=== PATIENT | female | born 1935 | race Caucasian/White ===

== ENCOUNTER 2017-05-21 13:31 | Inpatient (IN) | payer MEDICARE, MEDICAID ==
[2017-05-21] MEDS ORDERED: HYDROMORPHONE HCL INJ/PF 2 MG/ML AMPULE IM ONE (13:50)
--- NOTE | 2017-05-21 14:11 | RADIOLOGY REPORT (SQ) ---
EXAM DESCRIPTION: HIP LEFT AP/LATERAL COMPLETED DATE/TIME: 05/21/2017 1:52 pm REASON FOR STUDY: bed 2 wc s/p fall- l hip tenderness COMPARISON: None. NUMBER OF VIEWS: Two views. TECHNIQUE: AP pelvis and additional frog-leg view of the left hip. LIMITATIONS: None. FINDINGS: MINERALIZATION: Osteoporotic LEFT HIP: Acute intertrochanteric proximal femoral comminuted fracture with varus angulation. Medial and proximal displacement of a lesser trochanter fragment. RIGHT HIP: No fracture or dislocation. No worrisome bone lesions. PUBIS AND ISCHIUM: No fracture. PELVIS: No fracture. SACRUM: No fracture or dislocation. No worrisome bone lesions. LOWER LUMBAR SPINE: Disc space narrowing and facet arthropathy at L4-5 and L5-S1 SOFT TISSUES: No findings. OTHER: No other significant finding. IMPRESSION: Acute left intertrochanteric comminuted proximal femoral fracture with varus angulation. TECHNICAL DOCUMENTATION: JOB ID: [id number] [employer]- All Rights Reserved
--- NOTE | 2017-05-21 14:24 | ER Document Report ---
ED General - General Chief Complaint: Hip Injury Stated Complaint: FALL Time Seen by Provider: 05/21/17 13:50 TRAVEL OUTSIDE OF THE [place] IN LAST 30 DAYS: No - HPI Patient complains to provider of: Left hip pain Notes: Patient presents with 10/10 left hip pain. Pain started after fall at rehab facility. Just prior to arrival. Patient has history of left-sided deficit from stroke but is still able to ambulate and transfer. Patient was attempting to transfer lost her balance falling onto her left hip. No other traumatic injuries. Patient has no complaints at this time outside of left hip pain. - Related Data Allergies/Adverse Reactions: No Known Allergies Allergy (Unverified 09/08/10 10:02) Past Medical History - Social History Smoking Status: Never Smoker Chew tobacco use (# tins/day): No Frequency of alcohol use: None Drug Abuse: None Family History: Reviewed & Not Pertinent Patient has suicidal ideation: No Patient has homicidal ideation: No - Past Medical History Cardiac Medical History: Reports: Hx Hypercholesterolemia, Hx Hypertension Renal/ Medical History: Denies: Hx Peritoneal Dialysis Review of Systems - Review of Systems Constitutional: No symptoms reported EENT: No symptoms reported Cardiovascular: No symptoms reported Respiratory: No symptoms reported Gastrointestinal: No symptoms reported Genitourinary: No symptoms reported Female Genitourinary: No symptoms reported Musculoskeletal: Joint pain Skin: No symptoms reported Hematologic/Lymphatic: No symptoms reported Neurological/Psychological: No symptoms reported Physical Exam - Vital signs Interpretation: Normal - General General appearance: Appears well, Alert - HEENT Head: Normocephalic, Atraumatic Eyes: Normal Pupils: PERRL - Respiratory Respiratory status: No respiratory distress Chest status: Nontender Breath sounds: Normal Chest palpation: Normal - Cardiovascular Rhythm: Regular Heart sounds: Normal auscultation Murmur: No - Abdominal Inspection: Normal Distension: No distension Bowel sounds: Normal Tenderness: Nontender Organomegaly: No organomegaly - Back Back: Normal, Nontender - Extremities General lower extremity: No: Shelbi's sign Arm: Other - Left arm contracted locked in flexion Notes: Left leg shortened and externally rotated - Neurological Neuro grossly intact: Yes Cognition: Normal Orientation: AAOx4 Zoë Coma Scale Eye Opening: Spontaneous Rudyard Coma Scale Verbal: Oriented Zoë Coma Scale Motor: Obeys Commands Zoë Coma Scale Total: 15 Speech: Normal Motor strength normal: LUE, RUE, LLE, RLE Sensory: Normal - Psychological Associated symptoms: Normal affect, Normal mood - Skin Skin Temperature: Warm Skin Moisture: Dry Skin Color: Normal Course - Re-evaluation Re-evalutation: 05/21/17 14:33 Unfortunate female presents from [facility]. Patient has broken her left hip. Contacted orthopedics and will be repairing patients of tomorrow morning. Patient will be admitted to the hospital - EKG Interpretation by Me Additional EKG results interpreted by me: 05/21/17 14:32 Normal sinus rhythm, normal OR, no ST elevations or depressions, no pathologic T -wave inversion Discharge - Discharge Clinical Impression: Hip fracture Qualifiers: Encounter type: initial encounter Fracture type: closed Laterality: left Qualified Code(s): S72.002A - Fracture of unspecified part of neck of left femur , initial encounter for closed fracture Condition: Stable Disposition: ADMITTED INPATIENT Admitting Provider: [facility] Admitted: Medical Floor Referrals: MARISSA MILLER MD [Primary Care Provider] - Follow up as needed
--- NOTE | 2017-05-21 14:54 | RADIOLOGY REPORT (SQ) ---
EXAM DESCRIPTION: CHEST SINGLE VIEW COMPLETED DATE/TIME: 05/21/2017 2:37 pm REASON FOR STUDY: pre-op COMPARISON: Two-view chest 06/21/2007 EXAM PARAMETERS: NUMBER OF VIEWS: One view. TECHNIQUE: Single frontal radiographic view of the chest acquired. RADIATION DOSE: NA LIMITATIONS: None. FINDINGS: LUNGS AND PLEURA: No opacities, masses or pneumothorax. No pleural effusion. MEDIASTINUM AND HILAR STRUCTURES: No masses. Contour normal. HEART AND VASCULAR STRUCTURES: Heart normal in size. Normal vasculature. BONES: Osteoporotic HARDWARE: None in the chest. OTHER: No other significant finding. IMPRESSION: NO ACUTE RADIOGRAPHIC FINDING IN THE CHEST. TECHNICAL DOCUMENTATION: JOB ID: [id number] [employer]- All Rights Reserved
[2017-05-21 15:03] LABS: ABSOLUTE EOSINOPHILS # (AUTO) 0.2 10^3/uL (0.0-0.6); ABSOLUTE LYMPHOCYTES (AUTO) 1.6 10^3/uL (0.5-4.7); ABSOLUTE MONOCYTES (AUTO) 0.9 10^3/uL (0.1-1.4); ABSOLUTE NEUT (AUTO) 6.5 10^3/uL (1.7-8.2); BASOPHILS % (AUTO) 0.3 % (0-2); EOSINOPHILS % (AUTO) 1.8 % (0-6); HEMATOCRIT 35.2 % (36.0-47.0); LYMPHOCYTES % (AUTO) 17.1 % (13-45); MEAN CORPUSCULAR HGB CONC 34.1 g/dL (32.0-36.0); MEAN CORPUSCULAR VOLUME 105 fl (80-97); MONOCYTES % (AUTO) 9.5 % (3-13); PLATELET COUNT 204 10^3/uL (150-450); RED BLOOD COUNT 3.34 10^6/uL (3.72-5.28); RED CELL DISTRIBUTION WIDTH 11.9 % (11.5-14.0); SEGMENTED NEUTROPHILS % (AUTO) 71.3 % (42-78); TOTAL CELLS COUNTED % (AUTO) 100 %; WHITE BLOOD COUNT 9.1 10^3/uL (4.0-10.5)
[2017-05-21 15:08] LABS: INTERNATIONAL RATION (INR) 0.89; PROTHROMBIN TIME 12.7 SEC (11.4-15.4)
[2017-05-21 15:22] LABS: ANION GAP 6 (5-19); BLOOD UREA NITROGEN 35 mg/dL (7-20); CALCIUM 9.4 mg/dL (8.4-10.2); CARBON DIOXIDE 27 mmol/L (22-30); CHLORIDE 102 mmol/L (98-107); GLUCOSE 105 mg/dL (75-110); POTASSIUM 4.6 mmol/L (3.6-5.0); SODIUM 134.7 mmol/L (137-145)
[2017-05-21] MEDS ORDERED: 1/2 NORMAL SALINE 1,000 ML IV PRN (15:52)
[2017-05-21] MEDS ORDERED: INFLUENZA ADLT QUAD (36MOS+) 2017-18 VAC 0.5 ML SYR IM PRN (15:55)
[2017-05-21] MEDS ORDERED: DEXTROSE 40% GEL 15 GM TUBE PO PRN ×2 (16:12)
[2017-05-21] MEDS ORDERED: DEXTROSE 50%-WATER 25 GM/50 ML DISP.SYRIN IV PRN ×2 (16:12)
[2017-05-21] MEDS ORDERED: GLUCAGON,HUMAN RECOMB 1 MG INJ SUBCUT PRN (16:12)
[2017-05-21] MEDS: HYDROMORPHONE HCL INJ/PF 2 MG/ML AMPULE IV PRN (20:11)
[2017-05-21] MEDS ORDERED: (PENDING PHARMACY ID) (Ondansetron Hcl [Zofran 4 Mg Tablet] 4 MG) PO PRN (21:08)
[2017-05-21] MEDS ORDERED: (PENDING PHARMACY ID) (Acetaminophen [Tylenol Extra Strength] 1,000 MG) PO PRN (21:08)
[2017-05-21] MEDS ORDERED: (PENDING PHARMACY ID) (Calcium Carbonate/Vitamin D3 [Caltrate 600 Plus D3 Tablet] 1 TAB) PO SCH (21:15)
[2017-05-21] MEDS ORDERED: (PENDING PHARMACY ID) (Omega-3/Dha/Epa/Fish Oil [Fish Oil 1,000 Mg Softgel] 1 EACH) PO SCH (21:15)
[2017-05-21] MEDS ORDERED: (PENDING PHARMACY ID) (Multivit-Min/Iron/Folic/Lutein [Centrum Silver Women Tablet] 1 EACH PO SCH (21:15)
--- NOTE | 2017-05-21 21:24 | PDOC H&P ---
History of Present Illness Admission Date/PCP: 05/21/17 14:49 MARISSA MILLER MD History of Present Illness: SAUD DEWEY is a 82 year old female,She is a resident of halfway home at [facility] rehabilitation center she lost balance earlier today fell sustaining left intertrochanteric comminuted proximal femoral fracture. There was no antecedent chest pain, shortness of breath, loss of consciousness. She was referred to the emergency room, x-ray was done, this was confirmed. She has a history of CVA with residual left-sided weakness, she had a history of chronic kidney disease stage III, there is no history of diabetes mellitus, there is no history of coronary artery disease, there is no history of CHF based on the revised cardiac risk index score she has one-point based on the CVA history, the chronic kidney disease, serum creatinine is less than 2 this suggest that the risk of cardiovascular event in the ar-operative period is low she can proceed to surgery Past Medical History Cardiac Medical History: Reports: Hyperlipidema, Hypertension Neurological Medical History: Reports: Ischemic CVA Renal/ Medical History: Reports: Other - Chronic kidney disease stage III Musculoskeltal Medical History: Reports: Arthritis Psychiatric Medical History: Reports: Depression Hematology: Reports: Anemia Social History Smoking Status: Never Smoker Frequency of Alcohol Use: None Hx Recreational Drug Use: No Drugs: None Hx Prescription Drug Abuse: No - Advance Directive Resuscitation Status: Full Code Family History Family History: Reviewed & Not Pertinent Parental Family History Reviewed: Yes Children Family History Reviewed: Yes Sibling(s) Family History Reviewed.: Yes Medication/Allergy Home Medications: Acetaminophen [Tylenol Extra Strength] 1,000 mg PO Q8HP PRN 05/21/17 Amlodipine Besylate [Norvasc 10 mg Tablet] 10 mg PO DAILY 05/21/17 Aspirin/Dipyridamole [Aggrenox 25 mg-200 mg Capsule] 1 each PO BID 05/21/17 Atorvastatin Calcium [Lipitor 40 mg Tablet] 40 mg PO QHS 05/21/17 Bimatoprost [Lumigan 0.01% Oph Soln 2.5 ml/Bottle] 1 drop OU QHS 05/21/17 Calcium Carbonate/Vitamin D3 [Caltrate 600 + D Tablet] 1 tab PO BID 05/21/17 Carboxymethylcellulose Sodium [Refresh Tears] 2 drop OU Q12 05/21/17 Chlorpheniramine Maleate [Chlor-Trimeton 4 Mg Tablet] 4 mg PO Q6 05/21/17 Cholecalciferol (Vitamin D3) [Vitamin D3 1000 Unit Tablet] 2,000 unit PO DAILY 05/21/17 Ezetimibe [Zetia 10 mg Tablet] 10 mg PO DAILY 05/21/17 Ferrous Sulfate [Feosol 325 mg Tablet] 325 mg PO DAILY 05/21/17 Fluoxetine HCl [Prozac] 40 mg PO DAILY 05/21/17 Folic Acid [Folvite 1 mg Tablet] 1 mg PO DAILY 05/21/17 Furosemide [Lasix 40 mg Tablet] 40 mg PO QAM 05/21/17 Hydrocodone/Acetaminophen [[place] 5-325 mg Tablet] 1 tab PO Q6HP PRN 05/21/17 Lisinopril [Prinivil 40 mg Tablet] 40 mg PO DAILY 05/21/17 Loratadine [Claritin 10 mg Tablet] 10 mg PO DAILY 05/21/17 Lorazepam [Ativan 0.5 mg Tablet] 0.25 mg PO Q4HP PRN 05/21/17 Metoprolol Tartrate [Lopressor 25 mg Tablet] 25 mg PO Q12 05/21/17 Mometasone Furoate [Nasonex] 2 spray NS DAILY 05/21/17 Montelukast Sodium [Singulair 10 mg Tablet] 10 mg PO QHS 05/21/17 Multivit-Min/Iron/Folic/Lutein [Centrum Silver Women Tablet] 1 each PO DAILY 08/31 [place]-3/Dha/Epa/Fish Oil [Fish Oil 1,000 mg Softgel] 1 each PO TID 05/21/17 Omeprazole 20 mg PO DAILY 05/21/17 Ondansetron HCl [Zofran 4 mg Tablet] 4 mg PO Q8HP PRN 05/21/17 Potassium Chloride [Klor-Con M10] 10 meq PO DAILY 05/21/17 Sennosides/Docusate 8.6-50 mg [Senna Plus Tablet] 1 tab PO BID 05/21/17 Allergies/Adverse Reactions: No Known Allergies Allergy (Unverified 09/08/10 10:02) Review of Systems Constitutional: ABSENT: chills, fever(s), headache(s), weight gain, weight loss Eyes: ABSENT: visual disturbances Ears: ABSENT: hearing changes Cardiovascular: ABSENT: chest pain, dyspnea on exertion, edema, orthropnea, palpitations Respiratory: ABSENT: cough, hemoptysis Gastrointestinal: ABSENT: abdominal pain, constipation, diarrhea, hematemesis, hematochezia, nausea, vomiting Genitourinary: ABSENT: dysuria, hematuria Musculoskeletal: PRESENT: joint swelling Integumentary: ABSENT: rash, wounds Neurological: ABSENT: abnormal gait, abnormal speech, confusion, dizziness, focal weakness, syncope Psychiatric: ABSENT: anxiety, depression, homidical ideation, suicidal ideation Endocrine: ABSENT: cold intolerance, heat intolerance, menstrual abnormalities, polydipsia, polyuria Hematologic/Lymphatic: ABSENT: easy bleeding, easy bruising, lymphadenopathy Physical Exam Vital Signs: Temp Pulse Resp BP Pulse Ox 98.1 F 57 L 17 119/50 L 98 05/21/17 16:51 05/21/17 16:51 05/21/17 16:51 05/21/17 16:51 05/21/17 16:51 Intake & Output 05/20/17 05/21/17 05/22/17 06:59 06:59 06:59 Weight 65.1 kg General appearance: PRESENT: no acute distress, well-developed, well-nourished Head exam: PRESENT: atraumatic, normocephalic Eye exam: PRESENT: conjunctiva pink, EOMI, PERRLA Ear exam: PRESENT: normal external ear exam Mouth exam: PRESENT: moist, tongue midline Neck exam: PRESENT: full ROM Respiratory exam: PRESENT: clear to auscultation bill Cardiovascular exam: PRESENT: RRR, +S1, +S2 Vascular exam: PRESENT: normal capillary refill GI/Abdominal exam: PRESENT: normal bowel sounds, soft Rectal exam: PRESENT: deferred Musculoskeletal exam: PRESENT: deformity - There is deformity of the left lower extremities, tenderness on palpation of the HIP area Neurological exam: PRESENT: alert, motor sensory deficit - Left-sided weakness Psychiatric exam: PRESENT: appropriate affect, normal mood Skin exam: PRESENT: dry, intact, warm Results Impressions: Hip X-Ray 05/21/17 00:00 IMPRESSION: Acute left intertrochanteric comminuted proximal femoral fracture with varus angulation. Chest X-Ray 05/21/17 14:16 IMPRESSION: NO ACUTE RADIOGRAPHIC FINDING IN THE CHEST. Assessment & Plan - Diagnosis (1) Closed intertrochanteric fracture of left femur Qualifiers: Encounter type: initial encounter Fracture alignment: displaced Qualified Code(s): S72.142A - Displaced intertrochanteric fracture of left femur , initial encounter for closed fracture Is this a current diagnosis for this admission?: Yes Plan: Orthopedic consultation is ordered (2) Chronic kidney disease, stage 3 Is this a current diagnosis for this admission?: Yes (3) CVA, old, hemiparesis Is this a current diagnosis for this admission?: Yes (4) Preprocedural cardiovascular examination Is this a current diagnosis for this admission?: Yes Plan: Based on the revised cardiac risk index score, she has a history of CVA with residual left-sided weakness, no history of coronary artery disease, no history of congestive heart failure, no history of chronic kidney disease with serum creatinine more than 2, no history of diabetes mellitus insulin requiring, the anticipated surgical procedure is intermediate risk, the risk of cardiovascular events in the perioperative is low she can proceed to surgery
[2017-05-21] MEDS ORDERED: ACETAMINOPHEN 325 MG TABLET PO PRN (21:35)
[2017-05-21] MEDS ORDERED: ONDANSETRON 4 MG TAB.RAPDIS PO PRN (21:42)
[2017-05-21] MEDS ORDERED: MULTIVITAMIN TABLET PO ONE (22:00)
[2017-05-21] MEDS ORDERED: CHOLECALCIFEROL (D3) 1,000 UNIT TABLET PO ONE (22:00)
[2017-05-21] MEDS ORDERED: CARBOXYMETHYLCELLULOSE SODIUM OU SCH (22:00)
[2017-05-21] MEDS ORDERED: EZETIMIBE 10 MG TABLET PO ONE (22:00)
[2017-05-21 22:14] LABS: INTERNATIONAL RATION (INR) 0.87; PROTHROMBIN TIME 12.5 SEC (11.4-15.4)
[2017-05-21 22:15] LABS: PARTIAL THROMBOPLASTIN TIME 31.5 SEC (23.5-35.8)
[2017-05-21 22:29] LABS: LIPASE 125.1 U/L (23-300); MAGNESIUM 1.8 mg/dL (1.6-2.3); PHOSPHORUS 4.4 mg/dL (2.5-4.5)
--- NOTE | 2017-05-21 22:38 | EKG REPORT ---
SEVERITY:- ABNORMAL ECG - SINUS RHYTHM NONSPECIFIC T ABNORMALITIES, ANT-LAT LEADS : Confirmed by: Emiliano Begum 21-May-2017 22:37:31
[2017-05-21 23:29] LABS: FREE T4 (FREE THYROXINE) 0.84 ng/dL (0.78-2.19)
[2017-05-21 23:43] LABS: THYROID STIMULATING HORMONE 4.03 uIU/mL (0.47-4.68)
[2017-05-22] MEDS: FOLIC ACID 1 MG TABLET PO SCH ×2 (00:21→22:10)
[2017-05-22] MEDS: FLUOXETINE HCL 20 MG CAPSULE PO SCH ×2 (00:21→22:10)
[2017-05-22] MEDS: FERROUS SULFATE 325 MG TABLET PO SCH ×2 (00:21→22:10)
[2017-05-22] MEDS: LISINOPRIL 10 MG TABLET PO SCH ×2 (00:21→22:13)
[2017-05-22] MEDS: AMLODIPINE BESYLATE 10 MG TABLET PO SCH ×2 (00:21→22:13)
[2017-05-22] MEDS: SENNOSIDES/DOCUSATE 8.6-50 MG 1 EACH TABLET PO SCH ×3 (00:42→22:10)
[2017-05-22] MEDS: METOPROLOL TARTRATE 25 MG TABLET PO SCH ×3 (00:43→22:13)
[2017-05-22] MEDS: ATORVASTATIN CALCIUM 40 MG TABLET PO SCH ×2 (00:44→22:10)
[2017-05-22] MEDS: CALCIUM CARBONATE 250 MG/VITAMIN D3 125 UNIT TABLET PO SCH ×3 (00:46→22:11)
[2017-05-22] MEDS: OMEGA-3 ACID ETHYL ESTERS 1 GM CAPSULE PO SCH ×4 (00:46→22:10)
[2017-05-22] MEDS: ASPIRIN/DIPYRIDAMOLE 25-200 MG 1 CAP.SR CPMP.12HR PO SCH ×3 (01:05→22:11)
[2017-05-22] MEDS ORDERED: BIMATOPROST 0.01% OPH SOLN 2.5 ML/BOTTLE ONE (02:26)
[2017-05-22] MEDS: CARBOXYMETHYLCELLULOSE SOD 0.5% 0.4 ML DROPERETTE OU SCH ×3 (02:50→22:13)
[2017-05-22] MEDS: BIMATOPROST 0.01% OPH SOLN 2.5 ML/BOTTLE OU SCH ×2 (02:59→22:11)
[2017-05-22 03:56] LABS: ABSOLUTE EOSINOPHILS # (AUTO) 0.1 10^3/uL (0.0-0.6); ABSOLUTE LYMPHOCYTES (AUTO) 1.5 10^3/uL (0.5-4.7); ABSOLUTE NEUT (AUTO) 6.3 10^3/uL (1.7-8.2); BASOPHILS % (AUTO) 0.2 % (0-2); EOSINOPHILS % (AUTO) 0.7 % (0-6); HEMATOCRIT 28.6 % (36.0-47.0); LYMPHOCYTES % (AUTO) 16.8 % (13-45); MEAN CORPUSCULAR HEMOGLOBIN 36.8 pg (27.0-33.4); MEAN CORPUSCULAR HGB CONC 34.9 g/dL (32.0-36.0); MEAN CORPUSCULAR VOLUME 105 fl (80-97); MONOCYTES % (AUTO) 11.1 % (3-13); PLATELET COUNT 167 10^3/uL (150-450); RED BLOOD COUNT 2.71 10^6/uL (3.72-5.28); RED CELL DISTRIBUTION WIDTH 11.8 % (11.5-14.0); SEGMENTED NEUTROPHILS % (AUTO) 71.2 % (42-78); TOTAL CELLS COUNTED % (AUTO) 100 %; WHITE BLOOD COUNT 8.8 10^3/uL (4.0-10.5)
[2017-05-22 04:13] LABS: ALANINE AMINOTRANSFERASE 38 U/L (9-52); ALBUMIN 2.5 g/dL (3.5-5.0); ALKALINE PHOSPHATASE 91 U/L (38-126); ANION GAP 6 (5-19); ASPARTATE AMINO TRANSFERASE 47 U/L (14-36); BILIRUBIN,DIRECT 0.3 mg/dL (0.0-0.4); BILIRUBIN,TOTAL 0.3 mg/dL (0.2-1.3); BLOOD UREA NITROGEN 37 mg/dL (7-20); CALCIUM 9.2 mg/dL (8.4-10.2); CARBON DIOXIDE 26 mmol/L (22-30); CHLORIDE 104 mmol/L (98-107); CREATINE KINASE 65 U/L (30-135); GLUCOSE 104 mg/dL (75-110); POTASSIUM 4.6 mmol/L (3.6-5.0); SODIUM 135.5 mmol/L (137-145); TOTAL PROTEIN 4.9 g/dL (6.3-8.2)
[2017-05-22] MEDS: LANSOPRAZOLE 15 MG TAB.RAP.DR PO SCH (07:36)
[2017-05-22] MEDS: HYDROMORPHONE HCL INJ/PF 2 MG/ML AMPULE IV PRN ×2 (07:37→18:11)
[2017-05-22] MEDS: ENOXAPARIN SODIUM INJ 30 MG/0.3 ML DISP.SYRIN SUBCUT SCH (09:39)
[2017-05-22] MEDS: CHOLECALCIFEROL (D3) 1,000 UNIT TABLET PO SCH (09:47)
[2017-05-22] MEDS: EZETIMIBE 10 MG TABLET PO SCH (09:48)
[2017-05-22] MEDS: MULTIVITAMIN TABLET PO SCH (09:51)
--- NOTE | 2017-05-22 09:53 | PDOC H&P ---
History of Present Illness Admission Date/PCP: 05/21/17 14:49 MARISSA MILLER MD Patient complains of: Left hip pain History of Present Illness: SAUD DEWEY is a 82 year old female,She is a resident of snf home at [facility] rehabilitation center she lost balance earlier today fell sustaining left intertrochanteric comminuted proximal femoral fracture. Patient denied previous hip pain. She does have history of stroke on the left which makes it difficult to use her left hand. Patient states she uses a walker in her room but uses a wheelchair to get around other places. States the pain in her left hip has improved since the Dilaudid. Denies numbness or tingling. Pain currently 06/23. Past Medical History Cardiac Medical History: Reports: Hyperlipidema, Hypertension Neurological Medical History: Reports: Ischemic CVA Renal/ Medical History: Reports: Other - Chronic kidney disease stage III Musculoskeltal Medical History: Reports: Arthritis Psychiatric Medical History: Reports: Depression Hematology: Reports: Anemia Social History Smoking Status: Never Smoker Frequency of Alcohol Use: None Hx Recreational Drug Use: No Drugs: None Hx Prescription Drug Abuse: No - Advance Directive Resuscitation Status: Full Code Family History Family History: Reviewed & Not Pertinent Parental Family History Reviewed: No Children Family History Reviewed: No Sibling(s) Family History Reviewed.: No Medication/Allergy Home Medications: Acetaminophen [Tylenol Extra Strength] 1,000 mg PO Q8HP PRN 05/21/17 Amlodipine Besylate [Norvasc 10 mg Tablet] 10 mg PO DAILY 05/21/17 Aspirin/Dipyridamole [Aggrenox 25 mg-200 mg Capsule] 1 each PO BID 05/21/17 Atorvastatin Calcium [Lipitor 40 mg Tablet] 40 mg PO QHS 05/21/17 Bimatoprost [Lumigan 0.01% Oph Soln 2.5 ml/Bottle] 1 drop OU QHS 05/21/17 Calcium Carbonate/Vitamin D3 [Caltrate 600 + D Tablet] 1 tab PO BID 05/21/17 Carboxymethylcellulose Sodium [Refresh Tears] 2 drop OU Q12 05/21/17 Chlorpheniramine Maleate [Chlor-Trimeton 4 Mg Tablet] 4 mg PO Q6 05/21/17 Cholecalciferol (Vitamin D3) [Vitamin D3 1000 Unit Tablet] 2,000 unit PO DAILY 05/21/17 Ezetimibe [Zetia 10 mg Tablet] 10 mg PO DAILY 05/21/17 Ferrous Sulfate [Feosol 325 mg Tablet] 325 mg PO DAILY 05/21/17 Fluoxetine HCl [Prozac] 40 mg PO DAILY 05/21/17 Folic Acid [Folvite 1 mg Tablet] 1 mg PO DAILY 05/21/17 Furosemide [Lasix 40 mg Tablet] 40 mg PO QAM 05/21/17 Hydrocodone/Acetaminophen [[place] 5-325 mg Tablet] 1 tab PO Q6HP PRN 05/21/17 Lisinopril [Prinivil 40 mg Tablet] 40 mg PO DAILY 05/21/17 Loratadine [Claritin 10 mg Tablet] 10 mg PO DAILY 05/21/17 Lorazepam [Ativan 0.5 mg Tablet] 0.25 mg PO Q4HP PRN 05/21/17 Metoprolol Tartrate [Lopressor 25 mg Tablet] 25 mg PO Q12 05/21/17 Mometasone Furoate [Nasonex] 2 spray NS DAILY 05/21/17 Montelukast Sodium [Singulair 10 mg Tablet] 10 mg PO QHS 05/21/17 Multivit-Min/Iron/Folic/Lutein [Centrum Silver Women Tablet] 1 each PO DAILY 08/31 [place]-3/Dha/Epa/Fish Oil [Fish Oil 1,000 mg Softgel] 1 each PO TID 05/21/17 Omeprazole 20 mg PO DAILY 05/21/17 Ondansetron HCl [Zofran 4 mg Tablet] 4 mg PO Q8HP PRN 05/21/17 Potassium Chloride [Klor-Con M10] 10 meq PO DAILY 05/21/17 Sennosides/Docusate 8.6-50 mg [Senna Plus Tablet] 1 tab PO BID 05/21/17 Allergies/Adverse Reactions: No Known Allergies Allergy (Unverified 09/08/10 10:02) Review of Systems All systems: reviewed and no additional remarkable complaints except as stated Constitutional: ABSENT: chills, fever(s), headache(s), weight gain, weight loss Eyes: ABSENT: visual disturbances Ears: ABSENT: hearing changes Cardiovascular: ABSENT: chest pain, dyspnea on exertion, edema, orthropnea, palpitations Respiratory: ABSENT: cough, hemoptysis Gastrointestinal: ABSENT: abdominal pain, constipation, diarrhea, hematemesis, hematochezia, nausea, vomiting Genitourinary: ABSENT: dysuria, hematuria Musculoskeletal: PRESENT: as per HPI Integumentary: ABSENT: rash, wounds Neurological: PRESENT: frequent falls, weakness. ABSENT: abnormal gait, abnormal speech, confusion, dizziness, focal weakness, syncope Psychiatric: ABSENT: anxiety, depression, homidical ideation, suicidal ideation Endocrine: ABSENT: cold intolerance, heat intolerance, menstrual abnormalities, polydipsia, polyuria Hematologic/Lymphatic: ABSENT: easy bleeding, easy bruising, lymphadenopathy Physical Exam Vital Signs: Temp Pulse Resp BP Pulse Ox 97.8 F 58 L 16 100/52 L 100 05/22/17 08:00 05/22/17 08:00 05/22/17 08:00 05/22/17 08:00 05/22/17 08:00 Intake & Output 05/21/17 05/22/17 05/23/17 06:59 06:59 06:59 Intake Total 590 Output Total 180 Balance 410 Weight 65.2 kg General appearance: PRESENT: no acute distress, well-developed, well-nourished Head exam: PRESENT: atraumatic, normocephalic Eye exam: PRESENT: conjunctiva pink, EOMI, PERRLA. ABSENT: scleral icterus Ear exam: PRESENT: normal external ear exam Mouth exam: PRESENT: dry mucosa, tongue midline Neck exam: PRESENT: full ROM. ABSENT: carotid bruit, JVD, lymphadenopathy, thyromegaly Respiratory exam: PRESENT: unlabored Cardiovascular exam: PRESENT: RRR. ABSENT: diastolic murmur, rubs, systolic murmur Pulses: PRESENT: normal dorsalis pedis pul, +2 pedal pulses bilateral Vascular exam: PRESENT: normal capillary refill GI/Abdominal exam: PRESENT: normal bowel sounds, soft. ABSENT: distended, guarding, mass, organolmegaly, rebound, tenderness Rectal exam: PRESENT: deferred Extremities exam: PRESENT: other - Left hip: Short and externally rotated. Positive logroll. Intact plantar flexion/dorsiflexion of the foot. Dorsalis pedis pulse 2+. No sensory deficits. Left hand chronic contracture of the volar flexor tendons including flexion contracture of the wrist. No evidence of skin breakdown. Neurological exam: PRESENT: alert, awake, oriented to person, oriented to place , oriented to time, oriented to situation, motor sensory deficit Psychiatric exam: PRESENT: appropriate affect, normal mood. ABSENT: homicidal ideation, suicidal ideation Skin exam: PRESENT: dry, intact, warm. ABSENT: cyanosis, rash Results Laboratory Results: 05/22/17 03:40 05/22/17 03:40 05/21/17 05/21/17 05/21/17 21:43 21:43 21:43 WBC RBC Hgb Hct MCV MCH MCHC RDW Plt Count Seg Neutrophils % Lymphocytes % Monocytes % Eosinophils % Basophils % Absolute Neutrophils Absolute Lymphocytes Absolute Monocytes Absolute Eosinophils Absolute Basophils Sodium Potassium Chloride Carbon Dioxide Anion Gap BUN Creatinine Est GFR ( Amer) Est GFR (Non-Af Amer) Glucose Calcium Phosphorus 4.4 Magnesium 1.8 Total Bilirubin AST ALT Alkaline Phosphatase Ammonia < 8.7 L Total Protein Albumin Amylase 39 Lipase 125.1 TSH 4.03 Free T4 0.84 05/22/17 05/22/17 03:40 03:40 WBC 8.8 RBC 2.71 L Hgb 10.0 L Hct 28.6 L MCV 105 H MCH 36.8 H MCHC 34.9 RDW 11.8 Plt Count 167 Seg Neutrophils % 71.2 Lymphocytes % 16.8 Monocytes % 11.1 Eosinophils % 0.7 Basophils % 0.2 Absolute Neutrophils 6.3 Absolute Lymphocytes 1.5 Absolute Monocytes 1.0 Absolute Eosinophils 0.1 Absolute Basophils 0.0 Sodium 135.5 L Potassium 4.6 Chloride 104 Carbon Dioxide 26 Anion Gap 6 BUN 37 H Creatinine 1.81 H Est GFR ( Amer) 32 L Est GFR (Non-Af Amer) 27 L Glucose 104 Calcium 9.2 Phosphorus Magnesium Total Bilirubin 0.3 AST 47 H ALT 38 Alkaline Phosphatase 91 Ammonia Total Protein 4.9 L Albumin 2.5 L Amylase Lipase TSH Free T4 05/21/17 05/21/17 05/21/17 21:43 21:43 21:43 Creatine Kinase 61 Troponin I 0.016 NT-Pro-B Natriuret Pep 3680 H 05/22/17 05/22/17 03:40 03:40 Creatine Kinase 65 Troponin I 0.024 NT-Pro-B Natriuret Pep Impressions: Hip X-Ray 05/21/17 00:00 IMPRESSION: Acute left intertrochanteric comminuted proximal femoral fracture with varus angulation. Chest X-Ray 05/21/17 14:16 IMPRESSION: NO ACUTE RADIOGRAPHIC FINDING IN THE CHEST. Status: Image reviewed by me - I have reviewed patient's radiographs which demonstrate intertrochanteric left hip fracture. No evidence of pathologic abnormality Assessment & Plan - Diagnosis (1) Closed intertrochanteric fracture of left femur Qualifiers: Encounter type: initial encounter Fracture alignment: displaced Qualified Code(s): S72.142A - Displaced intertrochanteric fracture of left femur , initial encounter for closed fracture Is this a current diagnosis for this admission?: Yes Plan: I have discussed treatment options with the patient including operative versus nonoperative intervention. In order to improve patient's quality of life and obtain pain control I have recommended operative intervention given the fact patient is medically stable for operative treatment. Details of the surgical procedure have been explained to the patient including risks and benefits. At this point we will proceed with operative intervention which includes intramedullary nail left intertrochanteric hip fracture. Risks include anesthetic complications, excessive bleeding, infection, injury to surrounding nerves, vessels and tendons, bruising, healing difficulties, scar formation, posttraumatic arthritis and any unforseen complication, patient has verbalized understanding and consented for the procedure.
[2017-05-22] MEDS ORDERED: ENOXAPARIN SODIUM INJ 40 MG/0.4 ML DISP.SYRIN SUBCUT SCH (10:00)
[2017-05-22] MEDS ORDERED: CEFAZOLIN INJ 1 GM VIAL ONE (13:24)
[2017-05-22] MEDS ORDERED: MIDAZOLAM 2 MG/2 ML INJ ONE (13:59)
[2017-05-22] MEDS ORDERED: LIDOCAINE 2% INJ-PF (20 MG/ML) 10 ML AMPUL ONE (13:59)
[2017-05-22] MEDS ORDERED: ACETAMINOPHEN 100 ML IV ONE (14:00)
[2017-05-22] MEDS ORDERED: PROPOFOL INJ 200 MG/20 ML VIAL IV ONE (14:00)
[2017-05-22] MEDS ORDERED: ONDANSETRON HCL INJ/PF 4 MG/2 ML SDV ONE (14:00)
[2017-05-22] MEDS ORDERED: FENTANYL CITRATE INJ/PF 100 MCG/2 ML AMPUL ONE (14:08)
[2017-05-22] MEDS ORDERED: KETAMINE HCL INJ 500 MG/10 ML VIAL ONE (14:17)
[2017-05-22] MEDS ORDERED: EPHEDRINE SULFATE INJ 50 MG/1 ML AMPULE ONE (14:52)
[2017-05-22] MEDS ORDERED: DIPHENHYDRAMINE HCL 50 MG/ML VIAL IV PRN (15:07)
[2017-05-22] MEDS ORDERED: PROMETHAZINE HCL INJ 25 MG/1 ML VIAL IV PRN ×2 (15:07)
[2017-05-22] MEDS ORDERED: MEPERIDINE HCL/PF INJ 25 MG/1 ML DISP.SYRIN IV PRN (15:07)
[2017-05-22] MEDS ORDERED: MORPHINE SULFATE 10 MG/ML INJ IV PRN (15:07)
[2017-05-22] MEDS ORDERED: OXYCODONE-ACETAMINOPHEN 5-325 MG TABLET PO PRN ×2 (15:07)
[2017-05-22] MEDS ORDERED: FENTANYL CITRATE INJ/PF 100 MCG/2 ML AMPUL IV PRN ×3 (15:07)
--- NOTE | 2017-05-22 15:58 | Operative Report ---
Operative Report DATE OF SURGERY: 05/22/17 PREOPERATIVE DIAGNOSIS: Left Intertrochanteric Hip Fracture POSTOPERATIVE DIAGNOSIS: Same OPERATION: Left Cephalomedullary Nail Intertrochanteric Hip Fracture SURGEON: DISHA ESPINOSA ANESTHESIA: Spinal TISSUE REMOVED OR ALTERED: None COMPLICATIONS: None ESTIMATED BLOOD LOSS: 75cc PROCEDURE: Indication for above procedure: 82-year-old female who is a resident at [facility] sustained a fall onto her left hip resulting in a intratrochanteric fracture. Patient was brought to the emergency room orthopedics consulted and patient was admitted under Dr. Solares's service. Patient was found medically optimized for surgical intervention at that point I discussed treatment options with the patient including operative versus nonoperative intervention. Risks and benefits were explained to the patient who verbalized understanding consented for the procedure. Procedure in detail: Patient was seen and evaluated in the preoperative holding area. The left lower extremity was initialized and marked. Patient received 2 g Ancef IV for bacterial prophylaxis. Patient was taken back to the operative room where transferred operative table. Patient was placed under spinal anesthesia. Once adequate anesthetized he was carefully placed onto the hip positioner the nonoperative lower extremity and bilateral upper extremities were carefully padded and the peroneal nerve was padded and on the nonoperative extremity. The operative extremity was placed in a traction along with adduction and internal rotation. A surgical team debriefing was performed ensuring all instrumentation was available, the surgical procedure was discussed with possible concerns reviewed. A timeout was done identifying correct patient, procedure and extremity everyone in attendance agree with this and verbalized no concerns. Reduction maneuver with the use of the hip traction table were done and C-arm fluoroscopy was used to confirm optimal reduction of the intertrochanteric fracture. Once this was confirmed the lower extremity was prepped with chlor prep and draped in a sterile fashion. At this point a small skin incision was made proximal to the greater trochanter. The guidewire was placed onto the tip of the trochanter advanced down to the level of the lesser trochanter. AP and lateral fluoroscopy was used to confirm appropriate placement of the guidewire. The skin incision was then extended and the underlying fascia opened up carefully to the tip of the greater trochanter. The entry reamer was then used and advanced to the level of the lesser trochanter. At this point [place] short gamma nail was opened up and placed onto the aiming arm and advanced down the shaft of the femur. Given patient's narrow canal I chose to proceed with flexible reamers reaming up to a 13 mm reamer. I then advanced a short gamma nail to the appropriate level. AP and lateral fluoroscopy was then used to confirm appropriate placement of the nail. Then turned my attention to the compression screw fixation in the femoral head. The trochars were advanced to the skin, a skin incision was made, careful dissection down to the fascia to the lateral femoral cortex was then partaken. A anti-rotational pin was placed into the femoral head. The guidewire for the compression screw was then used and placed in the center center position with the tip apex distance less than 25 mm. Once this position was obtained the size of the compression screw was measured. AP and lateral fluoroscopy used to confirm appropriate placement of our guide wire. The step reamer was used to drill up through the femoral neck and head. I then carefully advanced the compression screw into position. The fracture was compressed utilizing the compression device. AP and lateral fluoroscopy was done to confirm appropriate placement of the compression screw this was then locked into position proximally. The compression screw was then disengaged from its mounting device and the guidewire was removed. Lastly proceeded with locking of the nail distally. Using the aiming arm the trochars were advanced to the skin, a skin incision was made. Careful dissection done with a hemostat to the lateral cortex of the femur. I then drilled the near and far cortices. Measured the appropriate sized distal locking screw and secured it into position. At this point AP/lateral and oblique views of the proximal and distal aspect of the nail were taken confirming appropriate placement of the compression screw, distal locking screw and intramedullary nail. Once this was confirmed I proceeded with copious irrigation of the proximal and distal wounds. The deep tissues were closed with 0 Vicryl suture, subcutaneous tissues were closed with 3-0 Monocryl suture. The skin was closed a running 3-0 subcuticular Monocryl suture and reinforced with Dermabond & Steri-Strips. A dressing was placed. Sponge counts, instrument counts and needle counts were correct. Patient was then transferred from the operating room table to the operating room stretcher. The was no intraoperative complications patient tolerated procedure well was stable to PACU. Implants used: Cathy 11 x 180 mm 125 Short Gamma Nail with a 90 mm compression screw Postoperative plan: Patient will begin physical therapy on postop day #1 with Lovenox.
[2017-05-22] MEDS ORDERED: RINGERS SOLUTION,LACTATED 1,000 ML IV PRN (15:59)
--- NOTE | 2017-05-22 16:33 | RADIOLOGY REPORT (SQ) ---
EXAM DESCRIPTION: HIP LEFT AP/LATERAL; NO CHG FLUORO COMPLETED DATE/TIME: 05/22/2017 4:07 pm REASON FOR STUDY: LEFT HIP GAMMA NAIL COMPARISON: Left hip films 05/21/2017 FLUOROSCOPY TIME: 2.1 minutes 10 digital radiographic images saved to PACS. TECHNIQUE: Intra-operative images acquired during surgical procedure to evaluate progress. NUMBER OF IMAGES: 10 digital radiographic images LIMITATIONS: None. FINDINGS: Intra procedural imaging and fluoro during ORIF left femoral intertrochanteric fracture wi th long intramedullary nail anchored by a distal screw. Please see the operative report for further details IMPRESSION: IMAGE(S) OBTAINED DURING PROCEDURE. COMMENT: Quality ID [id number]: Final reports for procedures using fluoroscopy that document radiation exp osure indices, or exposure time and number of fluorographic images (if radiation exposure indices are not available) Please consult full operative report of the attending physician for description of the procedure. TECHNICAL DOCUMENTATION: JOB ID: [id number] [employer]- All Rights Reserved
--- NOTE | 2017-05-22 16:33 | RADIOLOGY REPORT (SQ) ---
EXAM DESCRIPTION: HIP LEFT AP/LATERAL; NO CHG FLUORO COMPLETED DATE/TIME: 05/22/2017 4:07 pm REASON FOR STUDY: LEFT HIP GAMMA NAIL COMPARISON: Left hip films 05/21/2017 FLUOROSCOPY TIME: 2.1 minutes 10 digital radiographic images saved to PACS. TECHNIQUE: Intra-operative images acquired during surgical procedure to evaluate progress. NUMBER OF IMAGES: 10 digital radiographic images LIMITATIONS: None. FINDINGS: Intra procedural imaging and fluoro during ORIF left femoral intertrochanteric fracture wi th long intramedullary nail anchored by a distal screw. Please see the operative report for further details IMPRESSION: IMAGE(S) OBTAINED DURING PROCEDURE. COMMENT: Quality ID [id number]: Final reports for procedures using fluoroscopy that document radiation exp osure indices, or exposure time and number of fluorographic images (if radiation exposure indices are not available) Please consult full operative report of the attending physician for description of the procedure. TECHNICAL DOCUMENTATION: JOB ID: [id number] [employer]- All Rights Reserved
[2017-05-22] MEDS: CEFAZOLIN 2 GM/D5W RTU 2 GM/50 ML RTUPB IV SCH ×2 (17:44→23:44)
--- NOTE | 2017-05-22 21:04 | PDOC PROGRESS REPORT ---
Subjective Progress Note for:: 05/22/17 Subjective:: She had open reduction internal fixation of the fracture joint today Reason For Visit: LEFT FEMORAL FRACTURE Physical Exam Vital Signs: Temp Pulse Resp BP Pulse Ox 98.4 F 70 18 118/67 100 05/22/17 18:25 05/22/17 18:25 05/22/17 18:25 05/22/17 18:25 05/22/17 18:25 Intake & Output 05/21/17 05/22/17 05/23/17 06:59 06:59 06:59 Intake Total 590 1450 Output Total 180 300 Balance 410 1150 Weight 65.2 kg General appearance: PRESENT: no acute distress Eye exam: PRESENT: PERRLA Respiratory exam: PRESENT: clear to auscultation bill Cardiovascular exam: PRESENT: +S1, +S2 GI/Abdominal exam: PRESENT: soft Neurological exam: PRESENT: alert Results Laboratory Results: 05/22/17 03:40 05/22/17 03:40 05/21/17 05/21/17 05/21/17 21:43 21:43 21:43 WBC RBC Hgb Hct MCV MCH MCHC RDW Plt Count Seg Neutrophils % Lymphocytes % Monocytes % Eosinophils % Basophils % Absolute Neutrophils Absolute Lymphocytes Absolute Monocytes Absolute Eosinophils Absolute Basophils Sodium Potassium Chloride Carbon Dioxide Anion Gap BUN Creatinine Est GFR ( Amer) Est GFR (Non-Af Amer) Glucose Calcium Phosphorus 4.4 Magnesium 1.8 Total Bilirubin AST ALT Alkaline Phosphatase Ammonia < 8.7 L Total Protein Albumin Amylase 39 Lipase 125.1 TSH 4.03 Free T4 0.84 05/22/17 05/22/17 03:40 03:40 WBC 8.8 RBC 2.71 L Hgb 10.0 L Hct 28.6 L MCV 105 H MCH 36.8 H MCHC 34.9 RDW 11.8 Plt Count 167 Seg Neutrophils % 71.2 Lymphocytes % 16.8 Monocytes % 11.1 Eosinophils % 0.7 Basophils % 0.2 Absolute Neutrophils 6.3 Absolute Lymphocytes 1.5 Absolute Monocytes 1.0 Absolute Eosinophils 0.1 Absolute Basophils 0.0 Sodium 135.5 L Potassium 4.6 Chloride 104 Carbon Dioxide 26 Anion Gap 6 BUN 37 H Creatinine 1.81 H Est GFR ( Amer) 32 L Est GFR (Non-Af Amer) 27 L Glucose 104 Calcium 9.2 Phosphorus Magnesium Total Bilirubin 0.3 AST 47 H ALT 38 Alkaline Phosphatase 91 Ammonia Total Protein 4.9 L Albumin 2.5 L Amylase Lipase TSH Free T4 05/21/17 05/21/17 05/21/17 21:43 21:43 21:43 Creatine Kinase 61 Troponin I 0.016 NT-Pro-B Natriuret Pep 3680 H 05/22/17 05/22/17 05/22/17 03:40 03:40 10:01 Creatine Kinase 65 90 Troponin I 0.024 NT-Pro-B Natriuret Pep 05/22/17 10:01 Creatine Kinase Troponin I 0.026 NT-Pro-B Natriuret Pep Impressions: Chest X-Ray 05/21/17 14:16 IMPRESSION: NO ACUTE RADIOGRAPHIC FINDING IN THE CHEST. Fluoroscopy 05/22/17 00:00 IMPRESSION: IMAGE(S) OBTAINED DURING PROCEDURE. Hip X-Ray 05/22/17 00:00 IMPRESSION: IMAGE(S) OBTAINED DURING PROCEDURE. Assessment & Plan - Diagnosis (1) Closed intertrochanteric fracture of left femur Qualifiers: Encounter type: initial encounter Fracture alignment: displaced Qualified Code(s): S72.142A - Displaced intertrochanteric fracture of left femur , initial encounter for closed fracture Is this a current diagnosis for this admission?: Yes (2) Chronic kidney disease, stage 3 Is this a current diagnosis for this admission?: Yes (3) CVA, old, hemiparesis Is this a current diagnosis for this admission?: Yes (4) Preprocedural cardiovascular examination Is this a current diagnosis for this admission?: Yes
[2017-05-23] MEDS: CEFAZOLIN 2 GM/D5W RTU 2 GM/50 ML RTUPB IV SCH ×3 (05:16→18:27)
[2017-05-23] MEDS: LANSOPRAZOLE 15 MG TAB.RAP.DR PO SCH (05:17)
[2017-05-23] MEDS: OMEGA-3 ACID ETHYL ESTERS 1 GM CAPSULE PO SCH ×3 (05:17→22:05)
[2017-05-23] MEDS: ASPIRIN/DIPYRIDAMOLE 25-200 MG 1 CAP.SR CPMP.12HR PO SCH ×2 (10:52→22:10)
[2017-05-23] MEDS: MULTIVITAMIN TABLET PO SCH (10:52)
[2017-05-23] MEDS: EZETIMIBE 10 MG TABLET PO SCH (10:52)
[2017-05-23] MEDS: SENNOSIDES/DOCUSATE 8.6-50 MG 1 EACH TABLET PO SCH ×2 (10:52→22:09)
[2017-05-23] MEDS: METOPROLOL TARTRATE 25 MG TABLET PO SCH ×2 (10:52→22:08)
[2017-05-23] MEDS: CALCIUM CARBONATE 250 MG/VITAMIN D3 125 UNIT TABLET PO SCH ×2 (10:53→22:17)
[2017-05-23] MEDS: ENOXAPARIN SODIUM INJ 30 MG/0.3 ML DISP.SYRIN SUBCUT SCH (10:54)
[2017-05-23] MEDS: CHOLECALCIFEROL (D3) 1,000 UNIT TABLET PO SCH (10:54)
[2017-05-23] MEDS: CARBOXYMETHYLCELLULOSE SOD 0.5% 0.4 ML DROPERETTE OU SCH ×2 (12:30→22:25)
--- NOTE | 2017-05-23 21:34 | PDOC PROGRESS REPORT ---
Subjective Progress Note for:: 05/23/17 Subjective:: She was seen by the bedside, she has no new complaints was cleared by orthopedic she be transferred back to [facility] for [facility] Reason For Visit: LEFT FEMORAL FRACTURE Physical Exam Vital Signs: Temp Pulse Resp BP Pulse Ox 98.3 F 76 18 129/44 H 99 05/23/17 15:43 05/23/17 15:43 05/23/17 15:43 05/23/17 15:43 05/23/17 15:43 Intake & Output 05/22/17 05/23/17 05/24/17 06:59 06:59 06:59 Intake Total 590 3282 700 Output Total 180 600 500 Balance 410 2682 200 Weight 65.2 kg 69 kg General appearance: PRESENT: no acute distress, well-developed, well-nourished Head exam: PRESENT: atraumatic, normocephalic Eye exam: PRESENT: conjunctiva pink, EOMI, PERRLA. ABSENT: scleral icterus Ear exam: PRESENT: normal external ear exam Mouth exam: PRESENT: moist, tongue midline Neck exam: PRESENT: full ROM Respiratory exam: PRESENT: clear to auscultation bill Cardiovascular exam: PRESENT: RRR, +S1, +S2 Pulses: PRESENT: normal dorsalis pedis pul, +2 pedal pulses bilateral Vascular exam: PRESENT: normal capillary refill GI/Abdominal exam: PRESENT: normal bowel sounds, soft Rectal exam: PRESENT: deferred Neurological exam: PRESENT: alert Psychiatric exam: PRESENT: appropriate affect, normal mood Skin exam: PRESENT: dry, intact, warm Results Laboratory Results: 05/22/17 03:40 05/22/17 03:40 05/21/17 05/21/17 05/21/17 21:43 21:43 21:43 Creatine Kinase 61 Troponin I 0.016 NT-Pro-B Natriuret Pep 3680 H 05/22/17 05/22/17 05/22/17 03:40 03:40 10:01 Creatine Kinase 65 90 Troponin I 0.024 NT-Pro-B Natriuret Pep 05/22/17 10:01 Creatine Kinase Troponin I 0.026 NT-Pro-B Natriuret Pep Impressions: Chest X-Ray 05/21/17 14:16 IMPRESSION: NO ACUTE RADIOGRAPHIC FINDING IN THE CHEST. Fluoroscopy 05/22/17 00:00 IMPRESSION: IMAGE(S) OBTAINED DURING PROCEDURE. Hip X-Ray 05/22/17 00:00 IMPRESSION: IMAGE(S) OBTAINED DURING PROCEDURE. Assessment & Plan - Diagnosis (1) Closed intertrochanteric fracture of left femur Qualifiers: Encounter type: initial encounter Fracture alignment: displaced Qualified Code(s): S72.142A - Displaced intertrochanteric fracture of left femur , initial encounter for closed fracture Is this a current diagnosis for this admission?: Yes (2) Chronic kidney disease, stage 3 Is this a current diagnosis for this admission?: Yes (3) CVA, old, hemiparesis Is this a current diagnosis for this admission?: Yes (4) Preprocedural cardiovascular examination Is this a current diagnosis for this admission?: Yes
[2017-05-23] MEDS: AMLODIPINE BESYLATE 10 MG TABLET PO SCH (22:07)
[2017-05-23] MEDS: ATORVASTATIN CALCIUM 40 MG TABLET PO SCH (22:08)
[2017-05-23] MEDS: FLUOXETINE HCL 20 MG CAPSULE PO SCH (22:09)
[2017-05-23] MEDS: FOLIC ACID 1 MG TABLET PO SCH (22:16)
[2017-05-23] MEDS: BIMATOPROST 0.01% OPH SOLN 2.5 ML/BOTTLE OU SCH (22:16)
[2017-05-23] MEDS: FERROUS SULFATE 325 MG TABLET PO SCH (22:16)
[2017-05-23 22:35] LABS: UR PRO/CREAT RATIO RESULT 0.1 mg/mg (0.0-0.2); URINE CREATININE 105.5 mg/dL (15-278); URINE PROTEIN 13.1 mg/dL (<12)
[2017-05-24] MEDS: LISINOPRIL 10 MG TABLET PO SCH ×2 (00:38→22:37)
[2017-05-24] MEDS: HYDROMORPHONE HCL INJ/PF 2 MG/ML AMPULE IV PRN (03:23)
[2017-05-24] MEDS: CEFAZOLIN 2 GM/D5W RTU 2 GM/50 ML RTUPB IV SCH ×4 (03:24→17:53)
[2017-05-24 04:39] LABS: MEAN CORPUSCULAR HEMOGLOBIN 36.9 pg (27.0-33.4); MEAN CORPUSCULAR VOLUME 106 fl (80-97); PLATELET COUNT 132 10^3/uL (150-450); RED BLOOD COUNT 1.99 10^6/uL (3.72-5.28); RED CELL DISTRIBUTION WIDTH 11.9 % (11.5-14.0); WHITE BLOOD COUNT 9.2 10^3/uL (4.0-10.5)
[2017-05-24 04:41] LABS: HEMOGLOBIN 7.4 g/dL (12.0-15.5)
[2017-05-24 04:45] LABS: ALANINE AMINOTRANSFERASE 17 U/L (9-52); ALKALINE PHOSPHATASE 81 U/L (38-126); ANION GAP 7 (5-19); ASPARTATE AMINO TRANSFERASE 54 U/L (14-36); BLOOD UREA NITROGEN 21 mg/dL (7-20); CALCIUM 8.6 mg/dL (8.4-10.2); CARBON DIOXIDE 25 mmol/L (22-30); CHLORIDE 106 mmol/L (98-107); GLUCOSE 89 mg/dL (75-110); SODIUM 137.6 mmol/L (137-145); TOTAL PROTEIN 3.9 g/dL (6.3-8.2)
[2017-05-24 04:48] LABS: BILIRUBIN,TOTAL < 0.1 mg/dL (0.2-1.3)
[2017-05-24] MEDS: OMEGA-3 ACID ETHYL ESTERS 1 GM CAPSULE PO SCH ×3 (05:46→22:37)
[2017-05-24] MEDS: LANSOPRAZOLE 15 MG TAB.RAP.DR PO SCH (05:47)
--- NOTE | 2017-05-24 07:43 | PDOC PROGRESS REPORT ---
Subjective Progress Note for:: 05/23/17 Subjective:: Patient is resting in bed. No issues overnight. Reason For Visit: LEFT FEMORAL FRACTURE Physical Exam Vital Signs: Temp Pulse Resp BP Pulse Ox 36.9 C 77 16 112/41 L 99 05/24/17 00:08 05/24/17 00:08 05/24/17 00:08 05/24/17 00:08 05/24/17 00:08 Intake & Output 05/23/17 05/24/17 05/25/17 06:59 06:59 06:59 Intake Total 3282 1200 Output Total 600 500 Balance 2682 700 Weight 69 kg 69.7 kg General appearance: PRESENT: no acute distress Adult Front & Back Image: 1 - Left hip exam showing dressing is dry clean and intact. Patient has baseline spastic paralysis status post stroke. Results Laboratory Results: 05/24/17 04:16 05/24/17 04:16 05/24/17 05/24/17 04:16 04:16 WBC 9.2 RBC 1.99 L Hgb 7.4 L D Hct 21.0 L MCV 106 H MCH 36.9 H MCHC 35.0 RDW 11.9 Plt Count 132 L Sodium 137.6 Potassium 4.0 Chloride 106 Carbon Dioxide 25 Anion Gap 7 BUN 21 H Creatinine 1.10 Est GFR ( Amer) 58 L Est GFR (Non-Af Amer) 48 L Glucose 89 Calcium 8.6 Total Bilirubin < 0.1 L AST 54 H ALT 17 Alkaline Phosphatase 81 Total Protein 3.9 L Albumin 2.0 L 05/21/17 05/21/17 05/21/17 21:43 21:43 21:43 Creatine Kinase 61 Troponin I 0.016 NT-Pro-B Natriuret Pep 3680 H 05/22/17 05/22/17 05/22/17 03:40 03:40 10:01 Creatine Kinase 65 90 Troponin I 0.024 NT-Pro-B Natriuret Pep 05/22/17 10:01 Creatine Kinase Troponin I 0.026 NT-Pro-B Natriuret Pep Impressions: Chest X-Ray 05/21/17 14:16 IMPRESSION: NO ACUTE RADIOGRAPHIC FINDING IN THE CHEST. Fluoroscopy 05/22/17 00:00 IMPRESSION: IMAGE(S) OBTAINED DURING PROCEDURE. Hip X-Ray 05/22/17 00:00 IMPRESSION: IMAGE(S) OBTAINED DURING PROCEDURE. Assessment & Plan - Plan Summary Plan Summary: Patient is 82-year-old female POD #1 from cephalo-medullary nailing of the left intertrochanteric hip fracture. Continue physical therapy Continue pain control Continue DVT prophylaxis Awaiting placement at [facility]
[2017-05-24] MEDS: MULTIVITAMIN TABLET PO SCH (10:44)
[2017-05-24] MEDS: ASPIRIN/DIPYRIDAMOLE 25-200 MG 1 CAP.SR CPMP.12HR PO SCH ×2 (10:44→22:38)
[2017-05-24] MEDS: CHOLECALCIFEROL (D3) 1,000 UNIT TABLET PO SCH (10:45)
[2017-05-24] MEDS: CALCIUM CARBONATE 250 MG/VITAMIN D3 125 UNIT TABLET PO SCH ×2 (10:45→22:38)
[2017-05-24] MEDS: METOPROLOL TARTRATE 25 MG TABLET PO SCH ×2 (10:46→22:37)
[2017-05-24] MEDS: EZETIMIBE 10 MG TABLET PO SCH (10:47)
[2017-05-24] MEDS: SENNOSIDES/DOCUSATE 8.6-50 MG 1 EACH TABLET PO SCH ×2 (10:47→22:33)
[2017-05-24] MEDS: ENOXAPARIN SODIUM INJ 30 MG/0.3 ML DISP.SYRIN SUBCUT SCH (10:55)
[2017-05-24] MEDS ORDERED: CARBOXYMETHYLCELLULOSE SOD 0.5% 0.4 ML DROPERETTE OU ONE (12:00)
--- NOTE | 2017-05-24 12:27 | PDOC PROGRESS REPORT ---
Subjective Progress Note for:: 05/24/17 Subjective:: Patient resting in bed on the phone stating that her pain is somewhat adequately controlled. Will participate with physical therapy Reason For Visit: LEFT FEMORAL FRACTURE Physical Exam Vital Signs: Temp Pulse Resp BP Pulse Ox 36.8 C 71 17 128/48 H 97 05/24/17 09:22 05/24/17 09:22 05/24/17 09:22 05/24/17 09:22 05/24/17 09:22 Intake & Output 05/23/17 05/24/17 05/25/17 06:59 06:59 06:59 Intake Total 3282 1200 0 Output Total 600 500 Balance 2682 700 0 Weight 69 kg 69.7 kg Adult Front & Back Image: 1 - Dressing is dry clean and intact. Minimal ecchymosis and swelling. Explain spastic paralysis of the left lower extremity from previous cerebrovascular injury Results Laboratory Results: 05/24/17 04:16 05/24/17 04:16 05/24/17 05/24/17 05/24/17 04:16 04:16 07:10 WBC 9.2 RBC 1.99 L Hgb 7.4 L D Hct 21.0 L MCV 106 H MCH 36.9 H MCHC 35.0 RDW 11.9 Plt Count 132 L Sodium 137.6 Potassium 4.0 Chloride 106 Carbon Dioxide 25 Anion Gap 7 BUN 21 H Creatinine 1.10 Est GFR ( Amer) 58 L Est GFR (Non-Af Amer) 48 L Glucose 89 Calcium 8.6 Total Bilirubin < 0.1 L AST 54 H ALT 17 Alkaline Phosphatase 81 Total Protein 3.9 L Albumin 2.0 L Blood Type A NEGATIVE Antibody Screen NEGATIVE 05/23/17 01:25 Catheterized Urine Urine Culture - Final 1,000 col/ml 05/21/17 05/21/17 05/21/17 21:43 21:43 21:43 Creatine Kinase 61 Troponin I 0.016 NT-Pro-B Natriuret Pep 3680 H 05/22/17 05/22/17 05/22/17 03:40 03:40 10:01 Creatine Kinase 65 90 Troponin I 0.024 NT-Pro-B Natriuret Pep 05/22/17 10:01 Creatine Kinase Troponin I 0.026 NT-Pro-B Natriuret Pep Impressions: Chest X-Ray 05/21/17 14:16 IMPRESSION: NO ACUTE RADIOGRAPHIC FINDING IN THE CHEST. Fluoroscopy 05/22/17 00:00 IMPRESSION: IMAGE(S) OBTAINED DURING PROCEDURE. Hip X-Ray 05/22/17 00:00 IMPRESSION: IMAGE(S) OBTAINED DURING PROCEDURE. Assessment & Plan - Plan Summary Plan Summary: Patient is 82 POD #2 from cephalo-medullary nailing of left intertrochanteric hip fracture. Continue physical therapy Continue pain control Continue DVT prophylaxis Awaiting placement back to [facility]
--- NOTE | 2017-05-24 22:02 | PDOC PROGRESS REPORT ---
Subjective Progress Note for:: 05/24/17 Subjective:: She was seen by the bedside, she has low hemoglobin requiring blood transfusion , she will be transferred back to half-way tomorrow after blood transfusion to continue rehab Reason For Visit: LEFT FEMORAL FRACTURE Physical Exam Vital Signs: Temp Pulse Resp BP Pulse Ox 99.2 F 70 19 133/53 H 98 05/24/17 20:00 05/24/17 20:00 05/24/17 20:00 05/24/17 20:00 05/24/17 20:00 Intake & Output 05/23/17 05/24/17 05/25/17 06:59 06:59 06:59 Intake Total 3282 1200 1853 Output Total 600 500 Balance 2682 700 1853 Weight 69 kg 69.7 kg General appearance: PRESENT: no acute distress Eye exam: PRESENT: PERRLA Respiratory exam: PRESENT: clear to auscultation bill Cardiovascular exam: PRESENT: +S1, +S2 GI/Abdominal exam: PRESENT: soft Neurological exam: PRESENT: alert Results Laboratory Results: 05/24/17 04:16 05/24/17 04:16 05/24/17 05/24/17 05/24/17 04:16 04:16 07:10 WBC 9.2 RBC 1.99 L Hgb 7.4 L D Hct 21.0 L MCV 106 H MCH 36.9 H MCHC 35.0 RDW 11.9 Plt Count 132 L Sodium 137.6 Potassium 4.0 Chloride 106 Carbon Dioxide 25 Anion Gap 7 BUN 21 H Creatinine 1.10 Est GFR ( Amer) 58 L Est GFR (Non-Af Amer) 48 L Glucose 89 Calcium 8.6 Total Bilirubin < 0.1 L AST 54 H ALT 17 Alkaline Phosphatase 81 Total Protein 3.9 L Albumin 2.0 L Blood Type A NEGATIVE Antibody Screen NEGATIVE 05/23/17 01:25 Catheterized Urine Urine Culture - Final 1,000 col/ml 05/21/17 05/21/17 05/21/17 21:43 21:43 21:43 Creatine Kinase 61 Troponin I 0.016 NT-Pro-B Natriuret Pep 3680 H 05/22/17 05/22/17 05/22/17 03:40 03:40 10:01 Creatine Kinase 65 90 Troponin I 0.024 NT-Pro-B Natriuret Pep 02/06/18 10:01 Creatine Kinase Troponin I 0.026 NT-Pro-B Natriuret Pep Impressions: Chest X-Ray 05/21/17 14:16 IMPRESSION: NO ACUTE RADIOGRAPHIC FINDING IN THE CHEST. Fluoroscopy 05/22/17 00:00 IMPRESSION: IMAGE(S) OBTAINED DURING PROCEDURE. Hip X-Ray 05/22/17 00:00 IMPRESSION: IMAGE(S) OBTAINED DURING PROCEDURE. Assessment & Plan - Diagnosis (1) Closed intertrochanteric fracture of left femur Qualifiers: Encounter type: initial encounter Fracture alignment: displaced Qualified Code(s): S72.142A - Displaced intertrochanteric fracture of left femur , initial encounter for closed fracture Is this a current diagnosis for this admission?: Yes (2) Chronic kidney disease, stage 3 Is this a current diagnosis for this admission?: Yes (3) CVA, old, hemiparesis Is this a current diagnosis for this admission?: Yes (4) Preprocedural cardiovascular examination Is this a current diagnosis for this admission?: Yes
[2017-05-24] MEDS: FERROUS SULFATE 325 MG TABLET PO SCH (22:32)
[2017-05-24] MEDS: ATORVASTATIN CALCIUM 40 MG TABLET PO SCH (22:37)
[2017-05-24] MEDS: FOLIC ACID 1 MG TABLET PO SCH (22:37)
[2017-05-24] MEDS: AMLODIPINE BESYLATE 10 MG TABLET PO SCH (22:37)
[2017-05-24] MEDS: FLUOXETINE HCL 20 MG CAPSULE PO SCH (22:38)
[2017-05-24] MEDS: BIMATOPROST 0.01% OPH SOLN 2.5 ML/BOTTLE OU SCH (22:38)
[2017-05-24] MEDS: CARBOXYMETHYLCELLULOSE SOD 0.5% 0.4 ML DROPERETTE OU SCH (22:39)
[2017-05-25] MEDS: CEFAZOLIN 2 GM/D5W RTU 2 GM/50 ML RTUPB IV SCH ×3 (01:58→11:29)
[2017-05-25] MEDS: HYDROCODONE/ACETAMINOPHEN 5-325 MG TABLET PO PRN ×2 (04:02→14:18)
[2017-05-25] MEDS: LANSOPRAZOLE 15 MG TAB.RAP.DR PO SCH (06:05)
[2017-05-25] MEDS: OMEGA-3 ACID ETHYL ESTERS 1 GM CAPSULE PO SCH (06:06)
[2017-05-25 06:59] LABS: HEMATOCRIT 29.1 % (36.0-47.0); MEAN CORPUSCULAR HEMOGLOBIN 34.9 pg (27.0-33.4); MEAN CORPUSCULAR HGB CONC 35.7 g/dL (32.0-36.0); PLATELET COUNT 151 10^3/uL (150-450); RED BLOOD COUNT 2.97 10^6/uL (3.72-5.28); RED CELL DISTRIBUTION WIDTH 17.4 % (11.5-14.0)
[2017-05-25 07:05] LABS: MEAN CORPUSCULAR VOLUME 98 fl (80-97)
[2017-05-25 07:06] LABS: HEMOGLOBIN 10.4 g/dL (12.0-15.5); WHITE BLOOD COUNT 10.1 10^3/uL (4.0-10.5)
--- NOTE | 2017-05-25 08:07 | PDOC TRANSFER SUMMARY ---
General - Admit/Disc Date/PCP Admission Date/Primary Care Provider: 05/21/17 14:49 MARISSA MILLER MD Discharge Date: 05/25/17 - Discharge Diagnosis (1) Closed intertrochanteric fracture of left femur Is this a current diagnosis for this admission?: Yes (2) Chronic kidney disease, stage 3 Is this a current diagnosis for this admission?: Yes (3) CVA, old, hemiparesis Is this a current diagnosis for this admission?: Yes (4) Preprocedural cardiovascular examination Is this a current diagnosis for this admission?: Yes (5) Anemia due to acute blood loss Is this a current diagnosis for this admission?: Yes - Additional Information Resuscitation Status: Full Code Home Medications: Acetaminophen [Tylenol Extra Strength] 1,000 mg PO Q8HP PRN 05/21/17 Amlodipine Besylate [Norvasc 10 mg Tablet] 10 mg PO DAILY 05/21/17 Aspirin/Dipyridamole [Aggrenox 25 mg-200 mg Capsule] 1 each PO BID 05/21/17 Atorvastatin Calcium [Lipitor 40 mg Tablet] 40 mg PO QHS 05/21/17 Bimatoprost [Lumigan 0.01% Oph Soln 2.5 ml/Bottle] 1 drop OU QHS 05/21/17 Calcium Carbonate/Vitamin D3 [Caltrate 600 Plus D3 Tablet] 1 tab PO BID Carboxymethylcellulose Sodium [Refresh Tears] 2 drop OU Q12 05/21/17 Chlorpheniramine Maleate [Chlor-Trimeton 4 mg Tablet] 4 mg PO Q6 05/21/17 Cholecalciferol (Vitamin D3) [Vitamin D3 1000 Unit Tablet] 2,000 unit PO DAILY 05/21/17 Ezetimibe [Zetia 10 mg Tablet] 10 mg PO DAILY 05/21/17 Ferrous Sulfate [Feosol 325 mg Tablet] 325 mg PO DAILY 05/21/17 Fluoxetine HCl [Prozac] 40 mg PO DAILY 05/21/17 Folic Acid [Folvite 1 mg Tablet] 1 mg PO DAILY 05/21/17 Hydrocodone/Acetaminophen [[place] 5-325 mg Tablet] 1 tab PO Q6HP PRN 05/21/17 Lisinopril [Prinivil 40 mg Tablet] 40 mg PO DAILY 05/21/17 Metoprolol Tartrate [Lopressor 25 mg Tablet] 25 mg PO Q12 05/21/17 Montelukast Sodium [Singulair 10 mg Tablet] 10 mg PO QHS 05/21/17 Multivit-Min/Iron/Folic/Lutein [Centrum Silver Women Tablet] 1 each PO DAILY 08/31 [place]-3/Dha/Epa/Fish Oil [Fish Oil 1,000 mg Softgel] 1 each PO TID 05/21/17 Omeprazole 20 mg PO DAILY 05/21/17 Ondansetron HCl [Zofran 4 mg Tablet] 4 mg PO Q8HP PRN 05/21/17 Sennosides/Docusate 8.6-50 mg [Senna Plus Tablet] 1 tab PO BID 05/21/17 History of Present Illness Admission Date/PCP: 05/21/17 14:49 MARISSA MILLER MD History of Present Illness: She was admitted due to a fall ,she sustained fracture of the left hip Hospital Course Hospital Course: She was admitted for the management of the left hi,she was seen by orthopedics, she underwent ORIF by orthopedics,she had acute blood loss requiring blood transfusion Physical Exam Vital Signs: Temp Pulse Resp BP Pulse Ox 98.3 F 64 17 105/41 L 97 05/24/17 23:16 05/24/17 23:16 05/24/17 23:16 05/24/17 23:16 05/24/17 23:16 Intake & Output 05/24/17 05/25/17 05/26/17 06:59 06:59 06:59 Intake Total 1200 2994 Output Total 500 Balance 700 2994 Weight 69.7 kg 71.1 kg General appearance: PRESENT: no acute distress Head exam: PRESENT: atraumatic, normocephalic Eye exam: PRESENT: conjunctiva pink, EOMI, PERRLA Ear exam: PRESENT: normal external ear exam Mouth exam: PRESENT: moist, tongue midline Respiratory exam: PRESENT: clear to auscultation bill Cardiovascular exam: PRESENT: RRR, +S1, +S2 Pulses: PRESENT: normal dorsalis pedis pul Vascular exam: PRESENT: normal capillary refill GI/Abdominal exam: PRESENT: normal bowel sounds, soft Rectal exam: PRESENT: deferred Extremities exam: PRESENT: full ROM Neurological exam: PRESENT: alert Psychiatric exam: PRESENT: appropriate affect, normal mood Skin exam: PRESENT: dry, intact, warm Results Laboratory Results: 05/25/17 06:00 05/24/17 04:16 05/24/17 05/25/17 07:10 06:00 WBC 10.1 RBC 2.97 L Hgb 10.4 L D Hct 29.1 L MCV 98 H D MCH 34.9 H MCHC 35.7 RDW 17.4 H Plt Count 151 Blood Type A NEGATIVE Antibody Screen NEGATIVE 05/23/17 01:25 Catheterized Urine Urine Culture - Final 1,000 col/ml 05/21/17 05/21/17 05/21/17 21:43 21:43 21:43 Creatine Kinase 61 Troponin I 0.016 NT-Pro-B Natriuret Pep 3680 H 05/22/17 05/22/17 05/22/17 03:40 03:40 10:01 Creatine Kinase 65 90 Troponin I 0.024 NT-Pro-B Natriuret Pep 05/22/17 10:01 Creatine Kinase Troponin I 0.026 NT-Pro-B Natriuret Pep Impressions: Chest X-Ray 05/21/17 14:16 IMPRESSION: NO ACUTE RADIOGRAPHIC FINDING IN THE CHEST. Fluoroscopy 05/22/17 00:00 IMPRESSION: IMAGE(S) OBTAINED DURING PROCEDURE. Hip X-Ray 05/22/17 00:00
[2017-05-25] MEDS: ENOXAPARIN SODIUM INJ 30 MG/0.3 ML DISP.SYRIN SUBCUT SCH (11:19)
[2017-05-25] MEDS: ASPIRIN/DIPYRIDAMOLE 25-200 MG 1 CAP.SR CPMP.12HR PO SCH (11:21)
[2017-05-25] MEDS: METOPROLOL TARTRATE 25 MG TABLET PO SCH (11:22)
[2017-05-25] MEDS: EZETIMIBE 10 MG TABLET PO SCH (11:23)
[2017-05-25] MEDS: SENNOSIDES/DOCUSATE 8.6-50 MG 1 EACH TABLET PO SCH (11:24)
[2017-05-25] MEDS: MULTIVITAMIN TABLET PO SCH (11:26)
[2017-05-25] MEDS: CALCIUM CARBONATE 250 MG/VITAMIN D3 125 UNIT TABLET PO SCH (11:26)
[2017-05-25] MEDS: CHOLECALCIFEROL (D3) 1,000 UNIT TABLET PO SCH (11:27)
[2017-05-25] MEDS: CARBOXYMETHYLCELLULOSE SOD 0.5% 0.4 ML DROPERETTE OU SCH (11:36)
[2017-05-25 12:18] VITALS: BP 112/48
== END 2017-05-25 15:00 | DRG 481 ==
LOC: ER 13:31 → EH 14:49 → 4N 15:41
PROVIDERS: ADMIT Internal Medicine; ATTEND Internal Medicine
PROC: 0QS736Z Reposition Left Upper Femur with Intramedullary Internal Fixation Device, Percutaneous Approach (ICD-10-PCS; principal; 2017-05-22 14:00)
PROC: 30233N1 Transfusion of Nonautologous Red Blood Cells into Peripheral Vein, Percutaneous Approach (ICD-10-PCS; 2017-05-24)
DX: S72.142A Displaced intertrochanteric fracture of left femur, initial encounter for closed fracture (principal); I69.354 Hemiplegia and hemiparesis following cerebral infarction affecting left non-dominant side; D62 Acute posthemorrhagic anemia; I12.9 Hypertensive chronic kidney disease with stage 1 through stage 4 chronic kidney disease, or unspecified chronic kidney disease; N18.3 Chronic kidney disease, stage 3 (moderate); W19.XXXA Unspecified fall, initial encounter; Y92.129 Unspecified place in nursing home as the place of occurrence of the external cause; F32.9 Major depressive disorder, single episode, unspecified; M19.90 Unspecified osteoarthritis, unspecified site; E78.5 Hyperlipidemia, unspecified; Z79.82 Long term (current) use of aspirin; Z79.899 Other long term (current) drug therapy
CPT/HCPCS: 01230; 36415; 36430; 71045; 80048; 80076; 82140; 82150; 82550; 82570; 83690; 83735; 83880; 84100; 84156; 84439; 84443; 84484; 85025; 85027; 85610; 85730; 86850; 86900; 86901; 86920; 87040; 87086; 87493; 93005; 93010; 94799; 96372; 99285; C1713; G8978-GP; G8979-GP; G8987-GO; G8988-GO; J0131; J0690; J1170; J1650; J2250; J2405; J2704; J3010; J3490; J7120; P9016; S0119

== ENCOUNTER 2017-05-29 15:06 | Emergency (ER) | payer MEDICARE, MEDICAID ==
--- NOTE | 2017-05-29 15:30 | ER Document Report ---
ED General - General Chief Complaint: Leg Pain Stated Complaint: WEAKNESS Time Seen by Provider: 05/29/17 15:15 Mode of Arrival: Medic Information source: Patient Notes: 82-year-old female presents with complaints of intermittent leg pain. Patient states she has no pain at this time but intermittently will have pain in the leg , she had recent surgery performed on her femur on Sunday. She denies any fevers or chills denies any swelling in her extremities TRAVEL OUTSIDE OF THE [place] IN LAST 30 DAYS: No - HPI Onset: Yesterday Onset/Duration: Intermittent Quality of pain: Sharp Severity: Mild Pain Level: 1 Associated symptoms: Other Exacerbated by: Movement Relieved by: Denies Similar symptoms previously: No Recently seen / treated by doctor: Yes - Related Data Allergies/Adverse Reactions: No Known Allergies Allergy (Unverified 09/08/10 10:02) Past Medical History - Social History Smoking Status: Never Smoker Cigarette use (# per day): No Chew tobacco use (# tins/day): No Smoking Education Provided: No Family History: Reviewed & Not Pertinent - Past Medical History Cardiac Medical History: Reports: Hx Hypercholesterolemia, Hx Hypertension Renal/ Medical History: Denies: Hx Peritoneal Dialysis Musculoskeltal Medical History: Reports Hx Arthritis Psychiatric Medical History: Reports: Hx Depression Review of Systems - Review of Systems Notes: REVIEW OF SYSTEMS: CONSTITUTIONAL : Denies fever, chills, or sweats. Denies recent illness. EENT: Denies eye, ear, throat, or mouth pain or symptoms. Denies nasal or sinus congestion or discharge. Denies throat, tongue, or mouth swelling or difficulty swallowing. CARDIOVASCULAR: Denies chest pain. Denies palpitations or racing or irregular heart beat. Denies ankle edema. RESPIRATORY: Denies cough, cold, or chest congestion. Denies shortness of breath, difficulty breathing, or wheezing. GASTROINTESTINAL: Denies abdominal pain or distention. Denies nausea, vomiting , or diarrhea. Denies blood in vomitus, stools, or per rectum. Denies black, tarry stools. Denies constipation. GENITOURINARY: Denies difficulty urinating, painful urination, burning, frequency, blood in urine, or discharge. FEMALE GENITOURINARY: Denies vaginal bleeding, heavy or abnormal periods, irregular periods. Denies vaginal discharge or odor. MUSCULOSKELETAL: Admits to left leg pain SKIN: Denies rash, lesions or sores. HEMATOLOGIC : Denies easy bruising or bleeding. LYMPHATIC: Denies swollen, enlarged glands. NEUROLOGICAL: Denies confusion or altered mental status. Denies passing out or loss of consciousness. Denies dizziness or lightheadedness. Denies headache. Denies weakness or paralysis or loss of use of either side. Denies problems with gait or speech. Denies sensory loss, numbness, or tingling. Denies seizures. PSYCHIATRIC: Denies anxiety or stress. Denies depression, suicidal ideation, or homicidal ideation. ALL OTHER SYSTEMS REVIEWED AND NEGATIVE. PHYSICAL EXAMINATION: GENERAL: Well-appearing, well-nourished and in no acute distress. HEAD: Atraumatic, normocephalic. EYES: Pupils equal round and reactive to light, extraocular movements intact, conjunctiva are normal. ENT: Nares patent, oropharynx clear without exudates. Moist mucous membranes. NECK: Normal range of motion, supple without lymphadenopathy LUNGS: Breath sounds clear to auscultation bilaterally and equal. No wheezes rales or rhonchi. HEART: Regular rate and rhythm without murmurs ABDOMEN: Soft, nontender, nondistended abdomen. No guarding, no rebound. No masses appreciated. Female : deferred Musculoskeletal: Left arm contracture base of left leg NEUROLOGICAL: Baseline deficits PSYCH: Normal mood, normal affect. SKIN: Ecchymosis left groin. Dictation was performed using [email or web address] voice recognition software Physical Exam - Vital signs Vitals: Temp Pulse Resp BP Pulse Ox 97.9 F 73 20 118/37 L 96 05/29/17 15:20 05/29/17 15:20 05/29/17 15:20 05/29/17 15:20 05/29/17 15:20 Course - Re-evaluation Re-evalutation: 05/29/17 15:30 There is no signs of any infectious process there is mild ecchymosis in the groin with no erythema no warmth patient is afebrile Doppler has been ordered but this is probably a little excessive at this point - Vital Signs Vital signs: Temp Pulse Resp BP Pulse Ox 97.9 F 73 20 118/37 L 96 05/29/17 15:20 05/29/17 15:20 05/29/17 15:20 05/29/17 15:20 05/29/17 15:20 Discharge - Discharge Clinical Impression: Leg pain, left, post surgical pain Closed intertrochanteric fracture of left femur Qualifiers: Encounter type: sequela Fracture alignment: nondisplaced Qualified Code(s): S72.145S - Nondisplaced intertrochanteric fracture of left femur, sequela Condition: Stable Disposition: HOME, SELF-CARE Additional Instructions: There is no sign of infection, no blood clots, urine not having any pain at this time and are stable for discharge Please return immediately if there are any other concerns
[2017-05-29 18:22] VITALS: BP 118/86
--- NOTE | 2017-05-30 07:39 | XCELERA REPORT ---
[address] [address] Lower Extremity Venous Evaluation Name: SAUD DEWEY Age: 82 yrs Gender: Female : 1935 Patient Status: Emergency Patient Location: ER Study Date: 05/29/2017 05:19 PM Procedure: Color flow and duplex imaging of the veins of the left lower extremity as well as the right Common Femoral vein. Reason For Study: post surgical pain left lower extremity Ordering Physician: BRISSA ZACARIAS Performed By: Kenzie Lux Right Sided Venous Evaluation The right common femoral vein is fully compressible. Spontaneous and phasic flow is present in the right common femoral vein. Left Sided Venous Evaluation Normal vessel filling wall to wall, compression and augmentation as well as Colour flow down to the infrageniculate veins. Interpretation Summary No duplex evidence of DVT or obstruction in the left lower extremity nor in the right Common Femoral vein. : BRISSA ZACARIAS > Jignesh Little
== END 2017-05-29 16:30 | disposition home or self-care (01) ==
LOC: ER 15:06
DX: G89.18 Other acute postprocedural pain (principal); M79.605 Pain in left leg; I10 Essential (primary) hypertension
CPT/HCPCS: 93971; 99284

== ENCOUNTER → 2017-06-29 | Outpatient (CLI) | payer MEDICARE, MEDICAID ==
--- NOTE | 2017-06-29 10:51 | RADIOLOGY REPORT (SQ) ---
EXAM DESCRIPTION: CT FACIAL AREA WITHOUT COMPLETED DATE/TIME: 06/29/2017 9:51 am REASON FOR STUDY: M27.2 INFLAMMATORY CONDITIONS OF JAWS M27.2 INFLAMMATORY CONDITIONS OF JAWS COMPARISON: None. TECHNIQUE: Noncontrast scanning through the paranasal sinuses using bone algorithm. Reconstructed MPR images reviewed. All images stored on PACS. All CT scanners at this facility use dose modulation, iterative reconstruction, and/or weight based d osing when appropriate to reduce radiation dose to as low as reasonably achievable (ALARA). [facility]: Dose Right [facility]: CareDose [facility]: Dose Right [facility]: Teradose 4D [facility]: Phoneplus RADIATION DOSE: mGy. LIMITATIONS: None. FINDINGS: SINUSES: Clear, no masses, mucosal thickening or fluid. No erosions. NASAL CAVITY: Midline nasal septum. BONES: Normal mineralization. No fracture or bone lesion. ORBITS: Intact, symmetric globes. No retroorbital mass. TMJS: Normal. MASTOIDS: Clear. IACs symmetric, grossly normal. INFERIOR BRAIN: Limited view. No acute findings. OTHER: No other significant finding. IMPRESSION: NO EVIDENCE OF ACUTE OR CHRONIC SINUSITIS. TECHNICAL DOCUMENTATION: JOB ID: [id number] Quality ID # [id number]: Final reports with documentation of one or more dose reduction techniques (e.g., Au tomated exposure control, adjustment of the mA and/or kV according to patient size, use of iterative reconstruction technique) 2010 [employer]- All Rights Reserved Reading location - IP/workstation name: [email or web address]
== END ==
LOC: RAD 09:43
PROVIDERS: ATTEND Internal Medicine
DX: M27.2 Inflammatory conditions of jaws (principal)
CPT/HCPCS: 70486

== ENCOUNTER → 2018-02-05 | Outpatient (CLI) | payer MEDICARE, MEDICAID ==
--- NOTE | 2018-02-05 14:24 | RADIOLOGY REPORT (SQ) ---
EXAM DESCRIPTION: MRI HEAD WITHOUT COMPLETED DATE/TIME: 02/05/2018 2:05 pm REASON FOR STUDY: I69.359 HEMIPLGA FOLLOWING CEREBRAL INFARCTION AFFECTING UNSP SIDE;POSSIBLE I69.35 9 HEMIPLGA FOLLOWING CEREBRAL INFARCTION AFFECTING UNS COMPARISON: CT facial bones 06/29/2017 TECHNIQUE: Multiplanar imaging includes non-contrasted T1, T2, FLAIR, and diffusion with ADC map seq uences. Images stored on PACS. LIMITATIONS: Motion artifact FINDINGS: ANATOMY: No developmental anomalies. Normal vascular flow voids. Pituitary fossa normal. CSF SPACES: Normal in size and contour. No hemorrhage. CEREBRUM: Extensive increased FLAIR/ T2 signal throughout the hemispheric white matter with an old he morrhagic right posterior basal ganglia/ deep white matter infarct. No acute ischemic change in the hemispheres on diffusion-weighted images. No mass effect or midline shift. POSTERIOR FOSSA: Punctate focus of altered diffusion signal in the left cerebellar hemisphere on diff usion image 12, likely a tiny nonhemorrhagic acute infarct. No hemorrhage. No edema, masses or mass effect. Internal auditory canals, cerebello-pontine angles, mastoids normal. DIFFUSION IMAGING: Positive for a tiny punctate focus of altered diffusion in the left cerebellar hem isphere from tiny acute nonhemorrhagic infarct. ORBITS: No masses. Post left cataract surgery. PARANASAL SINUSES: No fluid levels. Mucosa normal. OTHER: No other significant finding. IMPRESSION: Extensive chronic small vessel ischemic change in the hemispheres with old remote prior right posterior basal ganglia hemorrhagic infarct. Diffusion-weighted images are positive for a tiny focus of acute nonhemorrhagic ischemic change in th e left cerebellar hemisphere EVIDENCE OF ACUTE STROKE: Yes TECHNICAL DOCUMENTATION: JOB ID: [id number]- All Rights Reserved Reading location - IP/workstation name: [email or web address] / [email or web address]
== END ==
LOC: RAD 16:25
PROVIDERS: ATTEND Internal Medicine
DX: I69.359 Hemiplegia and hemiparesis following cerebral infarction affecting unspecified side (principal)
CPT/HCPCS: 70551

== ENCOUNTER 2019-04-17 00:35 | Inpatient (IN) | payer MEDICARE, MEDICAID ==
--- NOTE | 2019-04-17 01:44 | ER Document Report ---
ED Respiratory Problem - General Chief Complaint: Medical Clearance Stated Complaint: SHORTNESS OF BREATH Time Seen by Provider: 04/17/19 01:21 Mode of Arrival: Medic Information source: [facility] Records, Outside Facility Records Notes: 83-year-old female presented to ED for admitted and observation and treatment for new onset CHF. Patient has been having a cough for several days had a chest x-ray and had an enlarged heart on the x-ray and was sent to the emergency room. Patient has no pedal edema is not hypoxic and does not know why she is in the emergency room. TRAVEL OUTSIDE OF THE [place] IN LAST 30 DAYS: No - HPI Patient complains to provider of: Cough Onset: Other Duration: Continuous - Several days Initiating Event: Other - Cough and congestion Quality of pain: No pain Severity: None Pain Level: Denies Context: Other - Cough and congestion Cough: Nonproductive Sputum amount: None Associated symptoms: Congestion, Cough Similar symptoms previously: Yes Recently seen / treated by doctor: No - Related Data Allergies/Adverse Reactions: No Known Allergies Allergy (Verified 04/17/19 00:47) Past Medical History - General Information source: [facility] Records, Outside Facility Records - Social History Smoking Status: Unknown if Ever Smoked Cigarette use (# per day): No Frequency of alcohol use: None Drug Abuse: None Lives with: [facility] Family History: Reviewed & Not Pertinent Patient has suicidal ideation: No Patient has homicidal ideation: No - Past Medical History Cardiac Medical History: Reports: Hx Hypercholesterolemia, Hx Hypertension Pulmonary Medical History: Reports: None EENT Medical History: Reports: None Neurological Medical History: Reports: Hx Cerebrovascular Accident Endocrine Medical History: Reports: None Renal/ Medical History: Reports: None Malignancy Medical History: Reports: None GI Medical History: Reports: Hx Gastroesophageal Reflux Disease, Hx Colonoscopy, Hx Endoscopy Musculoskeletal Medical History: Reports Hx Arthritis, Reports Hx Muscle Spasm, Reports Hx Muscle Weakness, Reports Hx Musculoskeletal Deformity Skin Medical History: Reports None Psychiatric Medical History: Reports: Hx Depression Traumatic Medical History: Reports: Hx Fractures - Immunizations Immunizations up to date: Yes Review of Systems - Review of Systems Constitutional: No symptoms reported EENT: No symptoms reported Cardiovascular: No symptoms reported Respiratory: Cough Gastrointestinal: No symptoms reported Genitourinary: No symptoms reported Female Genitourinary: No symptoms reported Musculoskeletal: Other - Contracture to the left arm Skin: No symptoms reported Hematologic/Lymphatic: No symptoms reported Neurological/Psychological: Confusion - Patient's normal, Dementia - Patient's normal -: Yes All other systems reviewed and negative Physical Exam - Vital signs Vitals: Temp Resp BP Pulse Ox 99.1 F 13 110/75 94 04/17/19 00:44 04/17/19 00:44 04/17/19 00:44 04/17/19 00:44 Interpretation: Normal - General General appearance: Appears well, Alert - HEENT Head: Normocephalic, Atraumatic Eyes: Normal Pupils: No: PERRL - Cataract surgery Ears: Normal External canal: Normal Sinus: Normal Mouth/Lips: Normal Pharynx: Normal Neck: Normal - Respiratory Respiratory status: No respiratory distress Chest status: Nontender Breath sounds: Nonproductive cough Chest palpation: Normal - Cardiovascular Rhythm: Regular Heart sounds: Normal auscultation Murmur: No - Abdominal Inspection: Normal Distension: No distension Bowel sounds: Normal Tenderness: Nontender Organomegaly: No organomegaly - Back Back: Normal, Nontender - Extremities General upper extremity: Normal inspection, Nontender, Normal color, Normal ROM, Normal temperature General lower extremity: Normal inspection, Nontender, Normal color, Normal ROM, Normal temperature, Normal weight bearing. No: Shelbi's sign - Neurological Neuro grossly intact: Yes Cognition: Normal Orientation: AAOx4 [place] Coma Scale Eye Opening: Spontaneous [place] Coma Scale Verbal: Oriented [place] Coma Scale Motor: Obeys Commands [place] Coma Scale Total: 15 Speech: Normal Motor strength normal: LUE, RUE, LLE, RLE Sensory: Normal - Psychological Associated symptoms: Normal affect, Normal mood - Skin Skin Temperature: Warm Skin Moisture: Dry Skin Color: Normal Course - Re-evaluation Re-evalutation: 04/17/19 04:[address] Azar who is on-call for Beck I did relay her BNP and chest x-ray he stated that if she does not have pedal edema and is not hypoxic she is not truly CHF to admit her to observation for Beck to see in the morning and determine her disposition. - Vital Signs Vital signs: Temp Pulse Resp BP Pulse Ox 98.7 F 17 133/47 H 93 04/17/19 07:59 04/17/19 07:01 04/17/19 07:01 04/17/19 07:01 - Laboratory Result Diagrams: 04/17/19 01:30 04/17/19 01:30 Laboratory results interpreted by me: 04/17/19 04/17/19 04/17/19 01:30 01:30 01:30 WBC 12.1 H RBC 3.54 L MCV 102 H MCH 35.2 H Lymph % (Auto) 12.9 L Absolute Neuts (auto) 9.1 H BUN 21 H Est GFR ( Amer) 59 L Est GFR (MDRD) Non-Af 49 L NT-Pro-B Natriuret Pep 2280 H - Diagnostic Test Radiology reviewed: Image reviewed, Reports reviewed Discharge - Discharge Clinical Impression: CHF (congestive heart failure) Qualifiers: Heart failure type: unspecified Heart failure chronicity: unspecified Qualified Code(s): I50.9 - Heart failure, unspecified Disposition: ADMITTED OBSERVATION Admitting Provider: Beck - spoke to ferny stated admit to [facility] Unit Admitted: Telemetry
[2019-04-17 01:45] LABS: ABSOLUTE EOSINOPHILS # (AUTO) 0.2 10^3/uL (0.0-0.6); ABSOLUTE LYMPHOCYTES (AUTO) 1.6 10^3/uL (0.5-4.7); ABSOLUTE MONOCYTES (AUTO) 1.2 10^3/uL (0.1-1.4); ABSOLUTE NEUT (AUTO) 9.1 10^3/uL (1.7-8.2); BASOPHILS % (AUTO) 0.4 % (0-2); EOSINOPHILS % (AUTO) 1.4 % (0-6); HEMATOCRIT 36.3 % (36.0-47.0); HEMOGLOBIN 12.5 g/dL (12.0-15.5); LYMPHOCYTES % (AUTO) 12.9 % (13-45); MEAN CORPUSCULAR HEMOGLOBIN 35.2 pg (27.0-33.4); MEAN CORPUSCULAR HGB CONC 34.4 g/dL (32.0-36.0); MEAN CORPUSCULAR VOLUME 102 fl (80-97); MONOCYTES % (AUTO) 10.3 % (3-13); PLATELET COUNT 180 10^3/uL (150-450); RED BLOOD COUNT 3.54 10^6/uL (3.72-5.28); RED CELL DISTRIBUTION WIDTH 12.1 % (11.5-14.0); TOTAL CELLS COUNTED % (AUTO) 100 %; WHITE BLOOD COUNT 12.1 10^3/uL (4.0-10.5)
[2019-04-17 02:01] LABS: ALBUMIN 3.6 g/dL (3.5-5.0); ALKALINE PHOSPHATASE 125 U/L (38-126); ANION GAP 11 (5-19); ASPARTATE AMINO TRANSFERASE 26 U/L (14-36); BILIRUBIN,DIRECT 0.3 mg/dL (0.0-0.4); BILIRUBIN,TOTAL 0.5 mg/dL (0.2-1.3); BLOOD UREA NITROGEN 21 mg/dL (7-20); CALCIUM 9.7 mg/dL (8.4-10.2); CARBON DIOXIDE 28 mmol/L (22-30); CHLORIDE 102 mmol/L (98-107); GLUCOSE 97 mg/dL (75-110); POTASSIUM 3.9 mmol/L (3.6-5.0); TOTAL PROTEIN 6.4 g/dL (6.3-8.2)
--- NOTE | 2019-04-17 04:05 | RADIOLOGY REPORT (SQ) ---
Chest 2 view on 04/17/2019 at 3:35 AM CLINICAL INDICATION: Cough COMPARISON: 05/21/2017 FINDINGS: Vascular calcification is noted in the aorta. Heart is borderline in size. The lungs are clear. Hilar and mediastinal contours are within normal limits. Pulmonary vascularity is within normal limits. IMPRESSION: No acute disease.
[2019-04-17 09:11] LABS: FREE T4 (FREE THYROXINE) 0.91 ng/dL (0.78-2.19)
[2019-04-17 09:12] LABS: INTERNATIONAL RATION (INR) 1.06; PROTHROMBIN TIME 13.8 SEC (11.4-15.4)
[2019-04-17 09:14] LABS: PARTIAL THROMBOPLASTIN TIME 32.4 SEC (23.5-35.8)
[2019-04-17 09:25] LABS: THYROID STIMULATING HORMONE 3.04 uIU/mL (0.47-4.68)
[2019-04-17 09:49] LABS: ALBUMIN 3.4 g/dL (3.5-5.0); ALKALINE PHOSPHATASE 115 U/L (38-126); ASPARTATE AMINO TRANSFERASE 24 U/L (14-36); BILIRUBIN,DIRECT 0.3 mg/dL (0.0-0.4); BILIRUBIN,TOTAL 0.5 mg/dL (0.2-1.3); CREATINE KINASE 39 U/L (30-135); TOTAL PROTEIN 6.3 g/dL (6.3-8.2)
[2019-04-17 09:58] LABS: CREATINE KINASE MB 0.75 ng/mL (<4.55)
[2019-04-17 10:02] LABS: TROPONIN I 0.037 ng/mL
[2019-04-17 10:23] LABS: ARTERIAL BLOOD BASE EXCESS 3.8 mmol/L; ARTERIAL BLOOD H2CO3 1.36 mmol/L (1.05-1.35); ARTERIAL BLOOD HCO3 28.9 mmol/L (20-24); ARTERIAL BLOOD O2 SATURATION 96.5 % (94-98); ARTERIAL BLOOD PCO2 45.2 mmHg (35-45); ARTERIAL BLOOD PH 7.42 (7.35-7.45); ARTERIAL BLOOD PO2 84.2 mmHg (80-100); ARTERIAL BLOOD TOTAL CO2 30.2 mmol/L (21-25)
[2019-04-17 10:27] LABS: ARTERIAL BLOOD FIO2 3L
[2019-04-17] MEDS: ENOXAPARIN SODIUM INJ 40 MG/0.4 ML DISP.SYRIN SUBCUT SCH (10:57)
[2019-04-17 15:46] LABS: CREATINE KINASE MB 0.78 ng/mL (<4.55); TROPONIN I 0.031 ng/mL
[2019-04-17] MEDS ORDERED: (PENDING PHARMACY ID) (Butalb/Acetaminophen/Caffeine [Butalb-Acetamin-Caff 50-325-40] 1 EA PO PRN (18:18)
[2019-04-17] MEDS ORDERED: HYDROCODONE/ACETAMINOPHEN 5-325 MG TABLET PO PRN (18:18)
[2019-04-17] MEDS ORDERED: (PENDING PHARMACY ID) (Acetaminophen [Tylenol Extra Strength] 1,000 MG) PO PRN (18:18)
[2019-04-17] MEDS ORDERED: (PENDING PHARMACY ID) (Loratadine [Claritin] 10 MG) PO SCH (18:30)
[2019-04-17] MEDS ORDERED: (PENDING PHARMACY ID) (Cranberry [Cranberry] 500 MG) PO SCH (18:30)
[2019-04-17] MEDS ORDERED: ACETAMINOPHEN 325 MG TABLET PO PRN (18:30)
[2019-04-17] MEDS ORDERED: CARBOXYMETHYLCELLULOSE SODIUM OU SCH (18:30)
[2019-04-17] MEDS ORDERED: FLUOXETINE HCL 60 MG PO SCH (18:30)
[2019-04-17] MEDS ORDERED: (PENDING PHARMACY ID) (Calcium Carbonate/Vitamin D3 [Caltrate 600 Plus D3 Tablet] 1 TAB) PO SCH (18:30)
[2019-04-17] MEDS ORDERED: (PENDING PHARMACY ID) (Multivit-Min/Iron/Folic/Lutein [Centrum Silver Women Tablet] 1 EACH PO SCH (18:30)
[2019-04-17] MEDS ORDERED: BUTALB/ACETAMINOPHEN/CAFFEINE 1 TAB EACH PO PRN (18:35)
[2019-04-17 19:26] LABS: APPEARANCE,URINE SLIGHTLY-CLOUDY; BILIRUBIN,URINE NEGATIVE (NEGATIVE); COLOR,URINE YELLOW; GLUCOSE, URINE NEGATIVE (NEGATIVE); KETONES,URINE NEGATIVE (NEGATIVE); LEUKOCYTE ESTERASE,URINE TRACE (NEGATIVE); NITRITE,URINE NEGATIVE (NEGATIVE); PROTEIN,URINE 30 mg/dL (NEGATIVE); URINE SPECIFIC GRAVITY 1.027; UROBILINOGEN,URINE NEGATIVE mg/dL (<2.0)
--- NOTE | 2019-04-17 19:30 | EKG REPORT ---
SEVERITY:- ABNORMAL ECG - SINUS RHYTHM MULTIPLE ATRIAL PREMATURE COMPLEXES LEFT VENTRICULAR HYPERTROPHY : Confirmed by: Fabian Rosas MD 17-Apr-2019 19:29:16
[2019-04-17] MEDS: ASPIRIN/DIPYRIDAMOLE 25-200 MG 1 CAP.SR CPMP.12HR PO SCH (19:40)
[2019-04-17] MEDS: SENNOSIDES/DOCUSATE 8.6-50 MG 1 EACH TABLET PO SCH (19:42)
[2019-04-17] MEDS: FOLIC ACID 1 MG TABLET PO SCH (19:42)
[2019-04-17] MEDS: CHOLECALCIFEROL (D3) 1,000 UNIT (25 MCG) TABLET PO SCH (19:42)
[2019-04-17] MEDS: METOPROLOL TARTRATE 25 MG TABLET PO SCH (19:42)
[2019-04-17] MEDS: AMLODIPINE BESYLATE 10 MG TABLET PO SCH (19:47)
[2019-04-17] MEDS: EZETIMIBE 10 MG TABLET PO SCH (19:47)
[2019-04-17] MEDS: LORATADINE 10 MG TABLET PO SCH (19:47)
[2019-04-17] MEDS: FERROUS SULFATE 325 MG TABLET PO SCH (19:47)
[2019-04-17] MEDS: MULTIVITAMIN TABLET PO SCH (19:48)
[2019-04-17] MEDS: FLUOXETINE HCL 20 MG CAPSULE PO SCH (19:48)
[2019-04-17] MEDS: PANTOPRAZOLE SODIUM 20 MG TABLET.DR PO SCH (21:01)
[2019-04-17] MEDS: LISINOPRIL 10 MG TABLET PO SCH (21:01)
[2019-04-17] MEDS: CALCIUM CARBONATE 250 MG/VITAMIN D3 125 UNIT TABLET PO SCH (21:02)
--- NOTE | 2019-04-17 21:22 | PDOC H&P ---
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 Patient is a full code because of the circumstances she was referred to the emergency room for evaluation., 2D echo was done, it demonstrated preserved ejection fraction of left ventricle, there was no demonstrable diastolic dysfunction of left ventricle. Past Medical History Cardiac Medical History: Reports: Hyperlipidema, Hypertension Pulmonary Medical History: Reports: None EENT Medical History: Reports: None Endocrine Medical History: Reports: None Renal/ Medical History: Reports: None Malignancy Medical History: Reports: None GI Medical History: Reports: Gastroesophageal Reflux Disease Musculoskeltal Medical History: Reports: Arthritis Skin Medical History: Reports: None Psychiatric Medical History: Reports: Depression Hematology: Reports: Anemia Social History Lives with: Usp Smoking Status: Unknown if Ever Smoked Frequency of Alcohol Use: None Hx Recreational Drug Use: No Drugs: None Hx Prescription Drug Abuse: No Family History Family History: Reviewed & Not Pertinent Parental Family History Reviewed: Yes Children Family History Reviewed: Yes Sibling(s) Family History Reviewed.: Yes Medication/Allergy Home Medications: Acetaminophen [Tylenol Extra Strength] 1,000 mg PO Q8HP PRN 05/21/17 Amlodipine Besylate [Norvasc 10 mg Tablet] 10 mg PO DAILY 05/21/17 Aspirin/Dipyridamole [Aggrenox 25 mg-200 mg Capsule] 1 each PO BID 05/21/17 Atorvastatin Calcium [Lipitor 40 mg Tablet] 40 mg PO QHS 05/21/17 Bimatoprost [Lumigan 0.01% Oph Soln 2.5 ml/Bottle] 1 drop OU QHS 05/21/17 Calcium Carbonate/Vitamin D3 [Caltrate 600 Plus D3 Tablet] 1 tab PO BID 05/21/17 Carboxymethylcellulose Sodium [Refresh Tears] 2 drop OU Q12 05/21/17 Cholecalciferol (Vitamin D3) [Vitamin D3 1000 Unit Tablet] 2,000 unit PO DAILY 05/21/17 Ezetimibe [Zetia 10 mg Tablet] 10 mg PO DAILY 05/21/17 Ferrous Sulfate [Feosol 325 mg Tablet] 325 mg PO DAILY 05/21/17 Fluoxetine HCl [Prozac] 60 mg PO DAILY 05/21/17 Folic Acid [Folvite 1 mg Tablet] 1 mg PO DAILY 05/21/17 Hydrocodone/Acetaminophen [[place] 5-325 mg Tablet] 1 tab PO Q6HP PRN 05/21/17 Lisinopril [Prinivil 40 mg Tablet] 40 mg PO DAILY 05/21/17 Metoprolol Tartrate [Lopressor 25 mg Tablet] 25 mg PO Q12 05/21/17 Montelukast Sodium [Singulair 10 mg Tablet] 10 mg PO QHS 05/21/17 Multivit-Min/Iron/Folic/Lutein [Centrum Silver Women Tablet] 1 each PO DAILY 05/21/17 Omeprazole 20 mg PO DAILY 05/21/17 Sennosides/Docusate 8.6-50 mg [Senna Plus Tablet] 1 tab PO BID 05/21/17 Butalb/Acetaminophen/Caffeine [Qwhmih-Hpehqgbj-Jghr 50-325-40] 1 each PO Q4HP PRN 04/17/19 Cranberry 500 mg PO QAM 04/17/19 Loratadine [Claritin] 10 mg PO QAM 04/17/19 Allergies/Adverse Reactions: No Known Allergies Allergy (Verified 04/17/19 00:47) Review of Systems Constitutional: ABSENT: chills, fever(s), headache(s), weight gain, weight loss Eyes: ABSENT: visual disturbances Ears: ABSENT: hearing changes Cardiovascular: ABSENT: as per HPI, chest pain, dyspnea on exertion, edema, orthropnea, palpitations, other Respiratory: ABSENT: cough, hemoptysis Gastrointestinal: ABSENT: abdominal pain, constipation, diarrhea, hematemesis, hematochezia, nausea, vomiting Genitourinary: ABSENT: dysuria, hematuria Musculoskeletal: ABSENT: joint swelling Integumentary: ABSENT: rash, wounds Neurological: ABSENT: abnormal gait, abnormal speech, confusion, dizziness, focal weakness, syncope Psychiatric: ABSENT: anxiety, depression, homidical ideation, suicidal ideation Endocrine: ABSENT: cold intolerance, heat intolerance, menstrual abnormalities, polydipsia, polyuria Hematologic/Lymphatic: ABSENT: easy bleeding, easy bruising, lymphadenopathy Physical Exam Vital Signs: Temp Pulse Resp BP Pulse Ox 98.3 F 17 148/47 H 99 04/17/19 16:56 04/17/19 16:00 04/17/19 15:01 04/17/19 16:00 Intake & Output 04/16/19 04/17/19 04/18/19 06:59 06:59 06:59 Weight 79.379 kg General appearance: PRESENT: no acute distress Head exam: PRESENT: atraumatic, normocephalic Eye exam: PRESENT: PERRLA Ear exam: PRESENT: normal external ear exam Mouth exam: PRESENT: moist, tongue midline Neck exam: PRESENT: full ROM Respiratory exam: PRESENT: clear to auscultation bill Cardiovascular exam: PRESENT: RRR, +S1, +S2 Pulses: PRESENT: normal dorsalis pedis pul, +2 pedal pulses bilateral Vascular exam: PRESENT: normal capillary refill GI/Abdominal exam: PRESENT: normal bowel sounds, soft Rectal exam: PRESENT: deferred Neurological exam: PRESENT: alert, motor sensory deficit - Flaccid paralysis of left side of the body Psychiatric exam: PRESENT: appropriate affect, normal mood Skin exam: PRESENT: dry, intact, warm. ABSENT: cyanosis, rash Results Laboratory Results: 04/17/19 01:30 04/17/19 01:30 04/17/19 04/17/19 04/17/19 01:30 01:30 01:30 WBC 12.1 H RBC 3.54 L Hgb 12.5 Hct 36.3 MCV 102 H MCH 35.2 H MCHC 34.4 RDW 12.1 Plt Count 180 Seg Neutrophils % 75.0 Carbonic Acid HCO3/H2CO3 Ratio ABG pH ABG pCO2 ABG pO2 ABG HCO3 ABG O2 Saturation ABG Base Excess FiO2 Sodium 141.0 Potassium 3.9 Chloride 102 Carbon Dioxide 28 Anion Gap 11 BUN 21 H Creatinine 1.07 Est GFR ( Amer) 59 L Glucose 97 Calcium 9.7 Magnesium Total Bilirubin 0.5 AST 26 Alkaline Phosphatase 125 Total Protein 6.4 Albumin 3.6 TSH 3.04 Free T4 0.91 Urine Color Urine Appearance Urine pH Ur Specific [place] Urine Protein Urine Glucose (UA) Urine Ketones Urine Blood Urine Nitrite Ur Leukocyte Esterase Urine WBC (Auto) 04/17/19 04/17/19 04/17/19 01:30 09:15 10:01 WBC RBC Hgb Hct MCV MCH MCHC RDW Plt Count Seg Neutrophils % Carbonic Acid 1.36 H HCO3/H2CO3 Ratio 21:1 ABG pH 7.42 ABG pCO2 45.2 H ABG pO2 84.2 ABG HCO3 28.9 H ABG O2 Saturation 96.5 ABG Base Excess 3.8 FiO2 3L Sodium Potassium Chloride Carbon Dioxide Anion Gap BUN Creatinine Est GFR ( Amer) Glucose Calcium Magnesium 1.8 Total Bilirubin 0.5 AST 24 Alkaline Phosphatase 115 Total Protein 6.3 Albumin 3.4 L TSH Free T4 Urine Color Urine Appearance Urine pH Ur Specific [place] Urine Protein Urine Glucose (UA) Urine Ketones Urine Blood Urine Nitrite Ur Leukocyte Esterase Urine WBC (Auto) 04/17/19 18:44 WBC RBC Hgb Hct MCV MCH MCHC RDW Plt Count Seg Neutrophils % Carbonic Acid HCO3/H2CO3 Ratio ABG pH ABG pCO2 ABG pO2 ABG HCO3 ABG O2 Saturation ABG Base Excess FiO2 Sodium Potassium Chloride Carbon Dioxide Anion Gap BUN Creatinine Est GFR ( Amer) Glucose Calcium Magnesium Total Bilirubin AST Alkaline Phosphatase Total Protein Albumin TSH Free T4 Urine Color YELLOW Urine Appearance SLIGHTLY-CLOUDY Urine pH 5.0 Ur Specific [place] 1.027 Urine Protein 30 H Urine Glucose (UA) NEGATIVE Urine Ketones NEGATIVE Urine Blood SMALL H Urine Nitrite NEGATIVE Ur Leukocyte Esterase TRACE H Urine WBC (Auto) 7 04/17/19 04/17/19 04/17/19 01:30 09:15 09:15 Creatine Kinase 39 CK-MB (CK-2) 0.75 Troponin I 0.037 NT-Pro-B Natriuret Pep 2280 H 04/17/19 04/17/19 14:56 14:56 Creatine Kinase 36 CK-MB (CK-2) 0.78 Troponin I 0.031 NT-Pro-B Natriuret Pep Impressions: Chest X-Ray 04/17/19 01:25 IMPRESSION: No acute disease. 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
[2019-04-17] MEDS ORDERED: (PENDING PHARMACY ID) (Bimatoprost [Lumigan 0.01% Oph Soln 2.5 Ml/Bottle] 1 DROP) OU SCH (22:00)
[2019-04-17 22:14] LABS: CREATINE KINASE MB 0.93 ng/mL (<4.55); TROPONIN I 0.031 ng/mL
[2019-04-17] MEDS: FUROSEMIDE INJ/PF 40 MG/4 ML SDV IV SCH (22:35)
[2019-04-17] MEDS ORDERED: INFLUENZA QUAD (6MOS+) 2019-20 VAC 0.5 ML SYR IM ONE (23:37)
[2019-04-17] MEDS: ATORVASTATIN CALCIUM 40 MG TABLET PO SCH (23:42)
[2019-04-17] MEDS: CARBOXYMETHYLCELLULOSE SOD 0.5% 0.4 ML DROPERETTE OU SCH (23:43)
[2019-04-17] MEDS: MONTELUKAST SODIUM 10 MG TABLET PO SCH (23:43)
[2019-04-17] MEDS: LATANOPROST 0.005% OPH SOLN 2.5 ML OU SCH (23:44)
[2019-04-18] MEDS: METOPROLOL TARTRATE 25 MG TABLET PO SCH ×2 (05:37→17:35)
[2019-04-18 06:29] LABS: ABSOLUTE EOSINOPHILS # (AUTO) 0.2 10^3/uL (0.0-0.6); ABSOLUTE LYMPHOCYTES (AUTO) 1.7 10^3/uL (0.5-4.7); ABSOLUTE MONOCYTES (AUTO) 0.8 10^3/uL (0.1-1.4); ABSOLUTE NEUT (AUTO) 3.9 10^3/uL (1.7-8.2); BASOPHILS % (AUTO) 0.4 % (0-2); HEMATOCRIT 34.5 % (36.0-47.0); HEMOGLOBIN 12.2 g/dL (12.0-15.5); LYMPHOCYTES % (AUTO) 25.8 % (13-45); MEAN CORPUSCULAR HEMOGLOBIN 35.7 pg (27.0-33.4); MEAN CORPUSCULAR HGB CONC 35.2 g/dL (32.0-36.0); MEAN CORPUSCULAR VOLUME 101 fl (80-97); MONOCYTES % (AUTO) 11.6 % (3-13); PLATELET COUNT 157 10^3/uL (150-450); RED BLOOD COUNT 3.41 10^6/uL (3.72-5.28); RED CELL DISTRIBUTION WIDTH 12.1 % (11.5-14.0); SEGMENTED NEUTROPHILS % (AUTO) 59.2 % (42-78); TOTAL CELLS COUNTED % (AUTO) 100 %; WHITE BLOOD COUNT 6.6 10^3/uL (4.0-10.5)
[2019-04-18 06:48] LABS: ANION GAP 7 (5-19); BLOOD UREA NITROGEN 29 mg/dL (7-20); CALCIUM 9.4 mg/dL (8.4-10.2); CARBON DIOXIDE 29 mmol/L (22-30); CHLORIDE 101 mmol/L (98-107); CHOLESTEROL 131.36 mg/dL (0-200); GLUCOSE 90 mg/dL (75-110); POTASSIUM 4.3 mmol/L (3.6-5.0); TRIGLYCERIDES 98 mg/dL (<150)
[2019-04-18 06:59] LABS: DIRECT LDL 71 mg/dL (<100)
[2019-04-18] MEDS: CALCIUM CARBONATE 250 MG/VITAMIN D3 125 UNIT TABLET PO SCH ×2 (10:20→17:35)
[2019-04-18] MEDS: FLUOXETINE HCL 20 MG CAPSULE PO SCH (10:21)
[2019-04-18] MEDS: LORATADINE 10 MG TABLET PO SCH (10:21)
[2019-04-18] MEDS: SENNOSIDES/DOCUSATE 8.6-50 MG 1 EACH TABLET PO SCH ×2 (10:21→17:35)
[2019-04-18] MEDS: ASPIRIN/DIPYRIDAMOLE 25-200 MG 1 CAP.SR CPMP.12HR PO SCH ×2 (10:21→17:35)
[2019-04-18] MEDS: PANTOPRAZOLE SODIUM 20 MG TABLET.DR PO SCH (10:21)
[2019-04-18] MEDS: MULTIVITAMIN TABLET PO SCH (10:21)
[2019-04-18] MEDS: FOLIC ACID 1 MG TABLET PO SCH (10:21)
[2019-04-18] MEDS: AMLODIPINE BESYLATE 10 MG TABLET PO SCH (10:21)
[2019-04-18] MEDS: ENOXAPARIN SODIUM INJ 40 MG/0.4 ML DISP.SYRIN SUBCUT SCH (10:22)
[2019-04-18] MEDS: LISINOPRIL 10 MG TABLET PO SCH (10:22)
[2019-04-18] MEDS: FERROUS SULFATE 325 MG TABLET PO SCH (10:22)
[2019-04-18] MEDS: CHOLECALCIFEROL (D3) 1,000 UNIT (25 MCG) TABLET PO SCH (10:23)
[2019-04-18] MEDS: EZETIMIBE 10 MG TABLET PO SCH (10:23)
[2019-04-18] MEDS: FUROSEMIDE INJ/PF 40 MG/4 ML SDV IV SCH (10:24)
[2019-04-18] MEDS: CARBOXYMETHYLCELLULOSE SOD 0.5% 0.4 ML DROPERETTE OU SCH ×2 (10:38→22:18)
--- NOTE | 2019-04-18 21:28 | XCELERA REPORT ---
[address] [address] Transthoracic Echocardiogram Report Name: SAUD DEWEY Age: 83 yrs Gender: Female : 1935 Patient Status: Inpatient Patient Location: [place] [id number]^A Study Date: 04/17/2019 10:49 AM Height: 64 in Weight: 175 lb BSA: 1.8 m2 Procedure: A two-dimensional transthoracic echocardiogram with color flow and Doppler was performed. Study Quality: Fair. Reason For Study: chf History: CHF. Ordering Physician: MARISSA MILLER Performed By: Tiffanie Valles Interpretation Summary The left ventricle is normal in size. There is normal left ventricular wall thickness. LV EF is 65% Left ventricular systolic function is normal. Doppler measurements suggest normal left ventricular diastolic function The left ventricular wall motion is normal. N ASD ,VSD , or PFO seen. The right ventricle is mild to moderately dilated. There is mild right ventricular hypertrophy. The right ventricle has normal dimensions with normal systolic function. The right atrium is mild to moderately dilated. The left atrium is moderately dilated. There is mild mitral annular calcification. There is no evidence of mitral valve prolapse. There is no vegetation seen on the mitral valve. There is no mitral valve stenosis. There is a mild amount of mitral regurgitation There is no aortic valvular vegetation. There is no aortic valve stenosis There is aortic sclerosis without aortic stenosis. There is no LVOT obstruction. There is a mild amount of aortic regurgitation There is no tricuspid stenosis. There is a moderate amount of tricuspid regurgitation There is moderate to severe pulmonary hypertension by echo RVSP is 55 to 60 mm of Hg , with RA mean of 5 to 10. There is no pulmonic valvular stenosis. There is no pulmonic valvular regurgitation. The aortic root is normal size. The inferior vena cava appeared normal and decreased > 50% with respiration (RAP 5-10 mmHg) There is no pericardial effusion. MMode/2D Measurements & Calculations RVDd: 4.2 cm LVIDd: 4.4 cm FS: 32.8 % Ao root diam: 2.7 cm IVSd: 1.1 cm LVIDs: 2.9 cm EDV(Teich): 86.5 ml Ao root area: 5.8 cm2 LVPWd: 1.1 cm ESV(Teich): 33.3 ml LA dimension: 4.5 cm EF(Teich): 61.4 % Doppler Measurements & Calculations MV E max gloria: MV P1/2t max gloria: Ao V2 max: AI max gloria: 94.8 cm/sec 94.3 cm/sec 115.0 cm/sec 439.8 cm/sec MV A max gloria: MV P1/2t: 48.5 msec Ao max PG: AI max P.4 mmHg 40.5 cm/sec MVA(P1/2t): 4.5 cm2 5.3 mmHg AI dec slope: MV E/A: 2.3 MV dec slope: 143.8 cm/sec2 AI P1/2t: 895.6 msec 569.9 cm/sec2 MV dec time: 0.17 sec LV V1 max PG: PA V2 max: TR max gloria: AV P1/2t-pr_phl: 12.6 mmHg 102.2 cm/sec 354.3 cm/sec 895.6 msec LV V1 max: PA max P.2 mmHg TR max P.2 cm/sec 50.2 mmHg MV P1/2t-pr_phl: 48.5 msec Left Ventricle The left ventricle is normal in size. There is normal left ventricular wall thickness. LV EF is 65%. Left ventricular systolic function is normal. Doppler measurements suggest normal left ventricular diastolic function. The left ventricular wall motion is normal. There is no thrombus. N ASD ,VSD , or PFO seen. Right Ventricle The right ventricle is mild to moderately dilated. There is mild right ventricular hypertrophy. The right ventricle has normal dimensions with normal systolic function. Atria The right atrium is mild to moderately dilated. The left atrium is moderately dilated. Mitral Valve There is mild mitral annular calcification. There is no evidence of mitral valve prolapse. There is no vegetation seen on the mitral valve. There is no mitral valve stenosis. There is a mild amount of mitral regurgitation. Aortic Valve There is no aortic valvular vegetation. There is no aortic valve stenosis. There is aortic sclerosis without aortic stenosis. There is no LVOT obstruction. There is a mild amount of aortic regurgitation. Tricuspid Valve There is no tricuspid stenosis. There is a moderate amount of tricuspid regurgitation. There is moderate to severe pulmonary hypertension by echo. RVSP is 55 to 60 mm of Hg , with RA mean of 5 to 10. Pulmonic Valve There is no pulmonic valvular stenosis. There is no pulmonic valvular regurgitation. Great Vessels The aortic root is normal size. The inferior vena cava appeared normal and decreased > 50% with respiration (RAP 5-10 mmHg). Effusions There is no pericardial effusion. : MARISSA MILLER Lakshmi
[2019-04-18] MEDS: LATANOPROST 0.005% OPH SOLN 2.5 ML OU SCH (22:18)
[2019-04-18] MEDS: ATORVASTATIN CALCIUM 40 MG TABLET PO SCH (22:18)
[2019-04-18] MEDS: MONTELUKAST SODIUM 10 MG TABLET PO SCH (22:18)
--- NOTE | 2019-04-18 22:33 | PDOC TRANSFER SUMMARY ---
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 Is this a current diagnosis for this admission?: Yes (3) Hypoxemia Is this a current diagnosis for this admission?: Yes - Additional Information Discharge Activity: Activity As Tolerated, Balance Activity w/Rest, Weigh Daily Referrals: MARISSA MILLER MD [Primary Care Provider] - 04/28/19 9:45 am Home Medications: Acetaminophen [Tylenol Extra Strength] 1,000 mg PO Q8HP PRN 05/21/17 Amlodipine Besylate [Norvasc 10 mg Tablet] 10 mg PO DAILY 05/21/17 Aspirin/Dipyridamole [Aggrenox 25 mg-200 mg Capsule] 1 each PO BID 05/21/17 Atorvastatin Calcium [Lipitor 40 mg Tablet] 40 mg PO QHS 05/21/17 Bimatoprost [Lumigan 0.01% Oph Soln 2.5 ml/Bottle] 1 drop OU QHS 05/21/17 Calcium Carbonate/Vitamin D3 [Caltrate 600 Plus D3 Tablet] 1 tab PO BID 05/21/17 Carboxymethylcellulose Sodium [Refresh Tears] 2 drop OU Q12 05/21/17 Cholecalciferol (Vitamin D3) [Vitamin D3 1000 Unit Tablet] 2,000 unit PO DAILY 05/21/17 Ezetimibe [Zetia 10 mg Tablet] 10 mg PO DAILY 05/21/17 Ferrous Sulfate [Feosol 325 mg Tablet] 325 mg PO DAILY 05/21/17 Fluoxetine HCl [Prozac] 60 mg PO DAILY 05/21/17 Folic Acid [Folvite 1 mg Tablet] 1 mg PO DAILY 05/21/17 Hydrocodone/Acetaminophen [[place] 5-325 mg Tablet] 1 tab PO Q6HP PRN 05/21/17 Lisinopril [Prinivil 40 mg Tablet] 40 mg PO DAILY 05/21/17 Metoprolol Tartrate [Lopressor 25 mg Tablet] 25 mg PO Q12 05/21/17 Montelukast Sodium [Singulair 10 mg Tablet] 10 mg PO QHS 05/21/17 Multivit-Min/Iron/Folic/Lutein [Centrum Silver Women Tablet] 1 each PO DAILY 05/21/17 Omeprazole 20 mg PO DAILY 05/21/17 Sennosides/Docusate 8.6-50 mg [Senna Plus Tablet] 1 tab PO BID 05/21/17 Butalb/Acetaminophen/Caffeine [Rtsnpq-Gubvvtqh-Htwl 50-325-40] 1 each PO Q4HP PRN 04/17/19 Cranberry 500 mg PO QAM 04/17/19 Loratadine [Claritin] 10 mg PO QAM 04/17/19 History of Present Illiness History of Present Illness: SAUD DEWEY is a 83 year old female,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 Patient is a full code because of the circumstances she was referred to the emergency room for evaluation., 2D echo was done, it demonstrated preserved ejection fraction of left ventricle, there was no demonstrable diastolic dysfunction of left ventricle. Hospital Course Hospital Course: Patient was admitted because of concern for CHF, the 2D echo that was done did not demonstrate any systolic nor diastolic failure, she was found to have severe pulmonary hypertension. She required oxygen therapy in the in the hospital, she be discharged back to [facility] to continue present treatment with oxygen therapy Physical Exam Vital Signs: Temp Pulse Resp BP Pulse Ox 98.2 F 59 L 20 124/40 L 95 04/18/19 19:52 04/18/19 19:52 04/18/19 19:52 04/18/19 19:52 04/18/19 19:52 Intake & Output 04/17/19 04/18/19 04/19/19 06:59 06:59 06:59 Intake Total 720 Output Total 0 Balance 720 Weight 79.379 kg 46.6 kg General appearance: PRESENT: no acute distress Eye exam: PRESENT: PERRLA Respiratory exam: PRESENT: clear to auscultation bill Cardiovascular exam: PRESENT: +S1, +S2 GI/Abdominal exam: PRESENT: soft Neurological exam: PRESENT: alert, motor sensory deficit Results Laboratory Results: WBC 6.6 10^3/uL (4.0-10.5) 04/18/19 05:59 RBC 3.41 10^6/uL (3.72-5.28) L 04/18/19 05:59 Hgb 12.2 g/dL (12.0-15.5) 04/18/19 05:59 Hct 34.5 % (36.0-47.0) L 04/18/19 05:59 MCV 101 fl (80-97) H 04/18/19 05:59 MCH 35.7 pg (27.0-33.4) H 04/18/19 05:59 MCHC 35.2 g/dL (32.0-36.0) 04/18/19 05:59 RDW 12.1 % (11.5-14.0) 04/18/19 05:59 Plt Count 157 10^3/uL (150-450) 04/18/19 05:59 Lymph % (Auto) 25.8 % (13-45) 04/18/19 05:59 [place] % (Auto) 11.6 % (3-13) 04/18/19 05:59 Eos % (Auto) 3.0 % (0-6) 04/18/19 05:59 Baso % (Auto) 0.4 % (0-2) 04/18/19 05:59 Absolute Neuts (auto) 3.9 10^3/uL (1.7-8.2) 04/18/19 05:59 Absolute Lymphs (auto) 1.7 10^3/uL (0.5-4.7) 04/18/19 05:59 Absolute Monos (auto) 0.8 10^3/uL (0.1-1.4) 04/18/19 05:59 Absolute Eos (auto) 0.2 10^3/uL (0.0-0.6) 04/18/19 05:59 Absolute Basos (auto) 0.0 10^3/uL (0.0-0.2) 04/18/19 05:59 Seg Neutrophils % 59.2 % (42-78) 04/18/19 05:59 PT 13.8 SEC (11.4-15.4) 04/17/19 01:30 INR 1.06 04/17/19 01:30 APTT 32.4 SEC (23.5-35.8) 04/17/19 01:30 Carbonic Acid 1.36 mmol/L (1.05-1.35) H 04/17/19 10:01 HCO3/H2CO3 Ratio 21:1 04/17/19 10:01 ABG pH 7.42 (7.35-7.45) 04/17/19 10:01 ABG pCO2 45.2 mmHg (35-45) H 04/17/19 10:01 ABG pO2 84.2 mmHg (80-100) 04/17/19 10:01 ABG HCO3 28.9 mmol/L (20-24) H 04/17/19 10:01 ABG Total CO2 30.2 mmol/L (21-25) H 04/17/19 10:01 ABG O2 Saturation 96.5 % (94-98) 04/17/19 10:01 ABG Base Excess 3.8 mmol/L 04/17/19 10:01 FiO2 3L 04/17/19 10:01 Sodium 137.4 mmol/L (137-145) 04/18/19 05:59 Potassium 4.3 mmol/L (3.6-5.0) 04/18/19 05:59 Chloride 101 mmol/L (98-107) 04/18/19 05:59 Carbon Dioxide 29 mmol/L (22-30) 04/18/19 05:59 Anion Gap 7 (5-19) 04/18/19 05:59 BUN 29 mg/dL (7-20) H 04/18/19 05:59 Creatinine 1.18 mg/dL (0.52-1.25) 04/18/19 05:59 Est GFR ( Amer) 53 (>60) L 04/18/19 05:59 Est GFR (MDRD) Non-Af 44 (>60) L 04/18/19 05:59 Glucose 90 mg/dL (75-110) 04/18/19 05:59 Hemoglobin A1c % 5.6 % (4.7-6.0) 04/18/19 05:59 Calcium 9.4 mg/dL (8.4-10.2) 04/18/19 05:59 Magnesium 1.8 mg/dL (1.6-2.3) 04/17/19 01:30 Total Bilirubin 0.5 mg/dL (0.2-1.3) 04/17/19 09:15 Direct Bilirubin 0.3 mg/dL (0.0-0.4) 04/17/19 09:15 Neonat Total Bilirubin Not Reportable 04/17/19 09:15 Neonat Direct Bilirubin Not Reportable 04/17/19 09:15 Neonat Indirect Bili Not Reportable 04/17/19 09:15 AST 24 U/L (14-36) 04/17/19 09:15 ALT 20 U/L (<35) 04/17/19 09:15 Alkaline Phosphatase 115 U/L (38-126) 04/17/19 09:15 Creatine Kinase 43 U/L (30-135) 04/17/19 20:25 CK-MB (CK-2) 0.93 ng/mL (<4.55) 04/17/19 20:25 Troponin I 0.031 ng/mL 04/17/19 20:25 NT-Pro-B Natriuret Pep 1010 pg/mL (<450) H 04/18/19 05:59 Total Protein 6.3 g/dL (6.3-8.2) 04/17/19 09:15 Albumin 3.4 g/dL (3.5-5.0) L 04/17/19 09:15 Triglycerides 98 mg/dL (<150) 04/18/19 05:59 Cholesterol 131.36 mg/dL (0-200) 04/18/19 05:59 LDL Cholesterol Direct 71 mg/dL (<100) 04/18/19 05:59 VLDL Cholesterol 20.0 mg/dL (10-31) 04/18/19 05:59 HDL Cholesterol 45 mg/dL (>40) 04/18/19 05:59 Vitamin B12 647.0 pg/mL (239-931) 04/17/19 20:25 TSH 3.04 uIU/mL (0.47-4.68) 04/17/19 01:30 Free T4 0.91 ng/dL (0.78-2.19) 04/17/19 01:30 Urine Color YELLOW 04/17/19 18:44 Urine Appearance SLIGHTLY-CLOUDY 04/17/19 18:44 Urine pH 5.0 (5.0-9.0) 04/17/19 18:44 Ur Specific [place] 1.027 04/17/19 18:44 Urine Protein 30 mg/dL (NEGATIVE) H 04/17/19 18:44 Urine Glucose (UA) NEGATIVE mg/dL (NEGATIVE) 04/17/19 18:44 Urine Ketones NEGATIVE mg/dL (NEGATIVE) 04/17/19 18:44 Urine Blood SMALL (NEGATIVE) H 04/17/19 18:44 Urine Nitrite NEGATIVE (NEGATIVE) 04/17/19 18:44 Urine Bilirubin NEGATIVE (NEGATIVE) 04/17/19 18:44 Urine Urobilinogen NEGATIVE mg/dL (<2.0) 04/17/19 18:44 Ur Leukocyte Esterase TRACE (NEGATIVE) H 04/17/19 18:44 Urine WBC (Auto) 7 /HPF 04/17/19 18:44 Urine Bacteria (Auto) 3+ /HPF 04/17/19 18:44 Squamous Epi Cells Auto 1 /HPF 04/17/19 18:44 Urine Mucus (Auto) FEW /LPF 04/17/19 18:44 Urine Ascorbic Acid NEGATIVE (NEGATIVE) 04/17/19 18:44 04/17/19 04/17/19 04/17/19 01:30 09:15 14:56 CK-MB (CK-2) 0.75 0.78 Troponin I 0.037 0.031 NT-Pro-B Natriuret Pep 2280 H 04/17/19 04/18/19 20:25 05:59 CK-MB (CK-2) 0.93 Troponin I 0.031 NT-Pro-B Natriuret Pep 1010 H Impressions: Chest X-Ray 04/17/19 01:25 IMPRESSION: No acute disease. Stroke Is this a Stroke Patient?: No Acute Heart Failure - Is this a Heart Failure Patient?: No
[2019-04-19 04:46] LABS: ABSOLUTE EOSINOPHILS # (AUTO) 0.2 10^3/uL (0.0-0.6); ABSOLUTE MONOCYTES (AUTO) 0.8 10^3/uL (0.1-1.4); ABSOLUTE NEUT (AUTO) 4.6 10^3/uL (1.7-8.2); BASOPHILS % (AUTO) 0.3 % (0-2); EOSINOPHILS % (AUTO) 2.4 % (0-6); HEMATOCRIT 33.7 % (36.0-47.0); HEMOGLOBIN 11.9 g/dL (12.0-15.5); LYMPHOCYTES % (AUTO) 25.9 % (13-45); MEAN CORPUSCULAR HEMOGLOBIN 35.8 pg (27.0-33.4); MEAN CORPUSCULAR HGB CONC 35.3 g/dL (32.0-36.0); MEAN CORPUSCULAR VOLUME 101 fl (80-97); MONOCYTES % (AUTO) 10.7 % (3-13); PLATELET COUNT 162 10^3/uL (150-450); RED BLOOD COUNT 3.33 10^6/uL (3.72-5.28); RED CELL DISTRIBUTION WIDTH 12.3 % (11.5-14.0); SEGMENTED NEUTROPHILS % (AUTO) 60.7 % (42-78); TOTAL CELLS COUNTED % (AUTO) 100 %; WHITE BLOOD COUNT 7.6 10^3/uL (4.0-10.5)
[2019-04-19] MEDS: METOPROLOL TARTRATE 25 MG TABLET PO SCH (05:00)
[2019-04-19] MEDS: CARBOXYMETHYLCELLULOSE SOD 0.5% 0.4 ML DROPERETTE OU SCH (10:23)
[2019-04-19] MEDS: ASPIRIN/DIPYRIDAMOLE 25-200 MG 1 CAP.SR CPMP.12HR PO SCH (10:24)
[2019-04-19] MEDS: CHOLECALCIFEROL (D3) 1,000 UNIT (25 MCG) TABLET PO SCH (10:24)
[2019-04-19] MEDS: LISINOPRIL 10 MG TABLET PO SCH (10:24)
[2019-04-19] MEDS: EZETIMIBE 10 MG TABLET PO SCH (10:24)
[2019-04-19] MEDS: FLUOXETINE HCL 20 MG CAPSULE PO SCH (10:24)
[2019-04-19] MEDS: LORATADINE 10 MG TABLET PO SCH (10:25)
[2019-04-19] MEDS: SENNOSIDES/DOCUSATE 8.6-50 MG 1 EACH TABLET PO SCH (10:25)
[2019-04-19] MEDS: FUROSEMIDE INJ/PF 40 MG/4 ML SDV IV SCH (10:25)
[2019-04-19] MEDS: AMLODIPINE BESYLATE 10 MG TABLET PO SCH (10:25)
[2019-04-19] MEDS: PANTOPRAZOLE SODIUM 20 MG TABLET.DR PO SCH (10:25)
[2019-04-19] MEDS: FERROUS SULFATE 325 MG TABLET PO SCH (10:25)
[2019-04-19] MEDS: FOLIC ACID 1 MG TABLET PO SCH (10:25)
[2019-04-19] MEDS: CALCIUM CARBONATE 250 MG/VITAMIN D3 125 UNIT TABLET PO SCH (10:25)
[2019-04-19] MEDS: MULTIVITAMIN TABLET PO SCH (10:25)
[2019-04-19] MEDS: ENOXAPARIN SODIUM INJ 40 MG/0.4 ML DISP.SYRIN SUBCUT SCH (10:26)
[2019-04-19 12:16] VITALS: BP 119/40
== END 2019-04-19 13:37 | DRG 315 ==
LOC: ER 00:35 → EH 04:28 → OBSVTOIN 08:22 → 3S 23:08
PROVIDERS: ADMIT Internal Medicine; ATTEND Internal Medicine
DX: I27.20 Pulmonary hypertension, unspecified (principal); I69.354 Hemiplegia and hemiparesis following cerebral infarction affecting left non-dominant side; E78.00 Pure hypercholesterolemia, unspecified; K21.9 Gastro-esophageal reflux disease without esophagitis; M62.48 Contracture of muscle, other site
CPT/HCPCS: 36415; 36600; 51701; 71046; 80048; 80053; 80061; 81001; 82550; 82553; 82607; 82803; 83036; 83735; 83880; 84439; 84443; 84484; 85025; 85610; 85730; 87070; 87086; 87088; 87186; 93005; 93010; 93306; 99285; J1650; J1940; J3490